=== PATIENT | female | born 1940 | race Caucasian/White ===

== ENCOUNTER → 2020-04-19 12:42 | Outpatient (REF) | payer MEDICARE, SELFPAY ==
--- NOTE | 2020-04-19 12:49 | CA_ITS ---
Transthoracic Echocardiogram Patient (Last, First, Middle): Shonda Venegas, Gender: Female Date of : 1940 Age: 79 Procedure Date: 04/19/2020 Procedure Type: Transthoracic Echocardiogram Location: OP Height: 154.94 cm Weight: 43.09 kg BSA: 1.38 m2 Heart Rate: bpm BP: 118 / 60 mmHg Coffee Taster: Referring MD: Charles Fairbanks MD Dish Carrier: Ziggy Camarena MD Symptoms: I35.0 AORTIC STENOSIS Study Quality: Fair ECG Rhythm: Sinus Conclusions: - 1. Normal LV systolic function with impaired relaxation filling pattern 2. Mild aortic stenosis 3. Normal RV systolic pressure 4. No pericardial effusion Findings Left Ventricle Normal left ventricular size, thickness, and systolic function. The visually estimated ejection fraction is between 65-70%. Spectral Doppler is indicative of an impaired relaxation filling pattern. E/E prime ratio is between 8 and 15 consistent with indeterminate filling pressures. Wall Motion Rest Echo Findings The basal inferolateral segment is hypokinetic. All other scored wall segments showed normal motion. Right Ventricle Normal right ventricular cavity size and systolic function. Atria The left atrium is mildly dilated. There is lipomatous hypertrophy of the interatrial septum. There is no evidence of interatrial shunt. The right atrium is normal in size. Aortic Valve The aortic valve was not well visualized. There is mild aortic valve stenosis. The peak aortic gradient is 19 mmHg.The mean gradient is 12 mmHg. There is no aortic valve regurgitation. Mitral Valve There is mild anterior mitral leaflet thickening. There is mild mitral annular calcification. There is trace mitral valve regurgitation. There is no mitral valve stenosis. Pulmonic Valve The pulmonic valve was not well visualized. Tricuspid Valve Likely normal tricuspid valve structure and function. There is trace tricuspid valve regurgitation. The right ventricular systolic pressure is normal. The right ventricular systolic pressure is 30 mmHg. Normal right atrial pressure. There is no evidence of pulmonary hypertension. Great Vessels All visible segments of the aorta are normal in size. The pulmonary artery was not well visualized. Venous The inferior vena cava is normal in size and collapses greater than 50% with inspiration. Pericardium/Pleural There is no evidence of pericardial effusion. Prior Study Comparison No significant change compared to prior study dated: 03/20/2019. Measurements 2D Linear Measurements IVSd: 1.08 0.6-0.9/0.6-1.0 cm LVIDd: 2.86 3.9-5.3/4.2-5.9 cm LVIDd Index: 2.07 2.4-3.2/2.2-3.1 cm/m2 LVIDs: 1.90 2.0-3.6 cm LVPWd: 1.10 0.7-1.1 cm Ao Root: 2.40 2.1-3.5 cm LA Diam: 3.50 2.7-3.8/3.0-4.0 cm LAIDs Index: 2.54 1.5-2.3 cm/m2 LV Mass: 148.70 67-162/88-224 g LV Mass Index: 107.75 43-95/49-115 g/m2 LVOT Diam: 1.90 3.0+(-)1.3 cm Mitral Valve MV Pk E: 0.66 MV PK A: 1.04 MV Decel Time: 222.00 E/A: 0.60 E'Lateral: 4.93 E'Medial: 5.13 E/E' Med: 12.80 E/E' Lat: 13.30 PHT: 65.00 MVA PHT: 3.38 Decel [place]: 2.95 Aortic Valve AoV Pk Fadi: 2.19 AoV Mn Fadi: 1.57 AoV VTI: 0.42 AoV Pk Grad: 19.00 Aov Mn Grad: 12.00 JEN Cont.VTI: 2.27 LVOT LVOT Pk Fadi: 1.64 LVOT Mn Fadi: 1.23 LVOT VTI: 0.34 LVOT Pk Grad: 11.00 LVOT Mn Grad: 7.00 LVOT Diam: 1.90 LVOT Area: 2.84 Diastolic Function MV Pk E: 0.66 MV Pk A: 1.04 E/A: 0.60 E'Medial: 5.13 E/E' Med: 12.80 E' Laterial: 4.93 E/E' Lat: 13.30 Tricuspid Valve TR Pk Fadi: 2.62 TR Pk Grad: 27.00 RA Press: 3.00 RVSP: 30.00 Great Vessels Aorta Ao Root-2D: 2.40 2.0-3.7 cm Ao Asc: 2.30 2.1-3.4 cm Pulmonary Valve PV Pk Fadi: 1.34 Peak PV Grad: 7.00 Updated in Other Vendor System with Status of Final Ziggy Camarena MD electronically signed on 04/20/2020 11:47:35 AM with status of Final
== END ==
LOC: HO.CARD 12:42
PROVIDERS: Visit Provider Internal Medicine
DX: I35.0 Nonrheumatic aortic (valve) stenosis (principal); I44.7 Left bundle-branch block, unspecified
CPT/HCPCS: 93306

== ENCOUNTER → 2020-04-29 14:41 | Outpatient (BNVA) | payer MEDICARE, SELFPAY | PROVIDERS: PCP Internal Medicine; Visit Provider Internal Medicine | DX: I35.0 Nonrheumatic aortic (valve) stenosis (principal); I44.7 Left bundle-branch block, unspecified; I10 Essential (primary) hypertension; E78.5 Hyperlipidemia, unspecified | CPT/HCPCS: 99212 ==

== ENCOUNTER 2020-11-30 22:27 | Emergency (ER) | payer MEDICARE, SELFPAY ==
[2020-11-30 22:46] VITALS: BP 157/74; PULSE 89; RESP 16; TEMP 36.4; O2SAT 94; BMI 25.4
--- NOTE | 2020-12-01 00:43 | ED.EXTPRO ---
HPI - Extremity Problem General Chief complaint: Extremity Problem Stated complaint: Leg spasms Time Seen by Provider: 12/01/20 00:43 Source: patient Mode of arrival: ambulatory Limitations: no limitations History of Present Illness HPI Narrative: Patient woke up of the night going to the bathroom and came back noticed sudden sharp pain in the left gluteal area radiating to the left leg. No back pain no abdominal pain no nausea no vomiting patient never had similar pain in the past no leg weakness no numbness Related Data Home Medications Medication Instructions Recorded Confirmed atorvastatin 40 mg tablet mg PO 04/29/20 04/29/20 memantine 10 mg tablet 10 mg PO BID 04/29/20 04/29/20 Previous Rx's Medication Instructions Recorded amlodipine 10 mg tablet 10 mg PO DAILY 90 Days #90 tab 02/21/20 lisinopril 20 2 tab PO DAILY #180 tab 10/15/20 mg-hydrochlorothiazide 12.5 mg tablet cyclobenzaprine 5 mg PO BID PRN #14 tab 12/01/20 diclofenac sodium 50 mg PO Q12H PRN #20 tab 12/01/20 Allergies Allergy/AdvReac Type Severity Reaction Status Date / Time No Known Allergies Allergy Verified 11/30/20 22:52 Review of Systems Review of Systems: Yes all other systems are reviewed and are negative [facility] Past Medical History Medical History Dementia Essential hypertension Hypertension LBBB (left bundle branch block) Non-rheumatic aortic stenosis Other and unspecified hyperlipidemia Surgical History History of bunionectomy History of rotator cuff surgery History of shoulder surgery History of tubal ligation Family History Family History Father No problems noted. Mother No problems noted. Social History Social History Advance Directives: No Advance Directives Information Provided: No Physical Exam Vital Signs: Vital Signs: Last Vital Signs Temp 97.5 F 11/30/20 22:46 Pulse 89 11/30/20 22:46 Resp 16 11/30/20 22:46 BP 157/74 H 11/30/20 22:46 Pulse Ox 94 11/30/20 22:46 Body Mass Index 25.4 Appearance: Alert. Oriented X3. No acute distress. ENT: Pharynx normal. Oral Mucosa moist Neck: Normal inspection. Neck supple. CVS: Normal heart rate and rhythm. Pulses normal. Respiratory: No respiratory distress. Equal air entry bilateral, Abdomen: Soft and nontender. Bowel sounds are present, no mass palpable, no CVA tenderness Skin: Skin warm and dry. Normal skin color. Normal skin turgor. Back: Left sciatic notch tenderness+ SLR positive at 80 degrees left side. No focal spinal tenderness patient ambulatory gait is normal Extremities: No lower extremity edema. No calf tenderness Neuro: Oriented X 3. No motor deficit. No sensory deficit MDM - Extremity (Nontraumatic) MDM Narrative Medical decision making narrative: Patient's symptoms likely from pyriform muscle spasm causing the sciatic pain. Will discharge patient on muscle relaxant and pain medication advised to follow with PCP Discharge Plan Discharge Clinical Impression: Piriformis syndrome of left side Patient Disposition: Home, Self-Care Instructions: Piriformis Syndrome (ED) Additional Instructions: Take pain Medications , take muscle relaxant as advised exercise as advised Prescriptions: New cyclobenzaprine 5 mg tablet 5 mg PO BID PRN (Reason: muscle spasm) Qty: 14 RF: 0 diclofenac sodium 50 mg tablet,delayed release (DR/EC) 50 mg PO Q12H PRN (Reason: pain) Qty: 20 RF: 0 No Action amlodipine 10 mg tablet 10 mg PO DAILY 90 Days Qty: 90 RF: 1 lisinopril-hydrochlorothiazide 20-12.5 mg tablet 2 tab PO DAILY Qty: 180 RF: 1 atorvastatin 40 mg tablet PO RF: 0 memantine 10 mg tablet 10 mg PO BID RF: 0
--- NOTE | 2020-12-01 01:00 | PC.NURSE ---
PER MD LABS NOT NEEDED, D/C W/O LAB WORK.
[2020-12-01] MEDS: Cyclobenzaprine HCl 10 MG TABLET PO (01:05)
[2020-12-01] MEDS: traMADoL HCL 50 MG TABLET PO (01:05)
== END 2020-12-01 01:13 | disposition home or self-care (01) ==
LOC: HO.ED 12-01 00:57
PROVIDERS: Emergency Provider Internal Medicine
DX: G57.02 Lesion of sciatic nerve, left lower limb (principal); M79.605 Pain in left leg; I10 Essential (primary) hypertension; Z79.899 Other long term (current) drug therapy
CPT/HCPCS: 99283

== ENCOUNTER → 2021-06-12 07:40 | Outpatient (REF) | payer MEDICARE, MEDICAID, SELFPAY ==
--- NOTE | 2021-06-12 07:51 | CA_ITS ---
Transthoracic Echocardiogram Patient (Last, First, Middle): Shonda Venegas, Gender: Female Date of : 1940 Age: 80 Procedure Date: 06/12/2021 Procedure Type: Transthoracic Echocardiogram Location: OP Height: 149.86 cm Weight: 57.15 kg BSA: 1.52 m2 Heart Rate: bpm BP: 120 / 80 mmHg Door Repairman: DELVIN Zavala MD: Charles Fairbanks MD Offset Press Operator Apprentice: Ziggy Camarena MD Symptoms: I35.0 - Nonrheumatic aortic (valve) stenosis Study Quality: Fair ECG Rhythm: Sinus Conclusions: - 1. Normal LV systolic function with impaired relaxation filling pattern with elevated filling pressures 2. Mild aortic stenosis 3. Upper limits of normal RV systolic pressure 4. No pericardial effusion Findings Left Ventricle Normal left ventricular size, thickness, and systolic function. The visually estimated ejection fraction is between 60-65%. Spectral Doppler is indicative of an impaired relaxation filling pattern. Elevated filling pressures. E/E prime ratio is >15, consistent with elevated filling pressures. Right Ventricle Normal right ventricular cavity size and systolic function. Atria The left atrium is normal in size. Interatrial shunt cannot be excluded. The right atrium is normal in size. Aortic Valve There is mild calcification of the aortic valve. There is mild aortic valve stenosis. The peak aortic gradient is 33 mmHg.The mean gradient is 17 mmHg. The aortic valve area is 1.82 cm2. There is no aortic valve regurgitation. Mitral Valve There is mild anterior and posterior mitral leaflet thickening. There is trace mitral valve regurgitation. There is no mitral valve stenosis. Pulmonic Valve The pulmonic valve was not well visualized. Tricuspid Valve Likely normal tricuspid valve structure and function. There is mild tricuspid valve regurgitation. The right ventricular systolic pressure is normal. The right ventricular systolic pressure is 37 mmHg. Normal right atrial pressure. There is no evidence of pulmonary hypertension. Great Vessels All visible segments of the aorta are normal in size. The pulmonary artery was not well visualized. Venous The inferior vena cava is normal in size and collapses greater than 50% with inspiration. Pericardium/Pleural There is no evidence of pericardial effusion. Prior Study Comparison No significant change compared to prior study dated: 04/19/2020. Measurements 2D Linear Measurements IVSd: 1.01 0.6-0.9/0.6-1.0 cm LVIDd: 3.06 3.9-5.3/4.2-5.9 cm LVIDd Index: 2.01 2.4-3.2/2.2-3.1 cm/m2 LVIDs: 2.21 2.0-3.6 cm LVPWd: 1.02 0.7-1.1 cm Ao Root: 2.30 2.1-3.5 cm LA Diam: 2.90 2.7-3.8/3.0-4.0 cm LAIDs Index: 1.91 1.5-2.3 cm/m2 LV Mass: 107.35 67-162/88-224 g LV Mass Index: 70.62 43-95/49-115 g/m2 LVOT Diam: 1.90 3.0+(-)1.3 cm 2D Systolic Function EF 4C: 61.80 >55% EF 2C: 61.60 >55% EF BiP: 62.40 >55% Mitral Valve MV Pk E: 0.86 MV PK A: 1.22 MV Decel Time: 243.00 E/A: 0.70 E'Lateral: 5.00 E'Medial: 5.77 E/E' Med: 15.00 E/E' Lat: 17.30 PHT: 71.00 MVA PHT: 3.10 Decel [place]: 3.55 Aortic Valve AoV Pk Fadi: 2.86 AoV Mn Fadi: 1.93 AoV VTI: 0.48 AoV Pk Grad: 33.00 Aov Mn Grad: 17.00 JEN Cont.VTI: 1.82 LVOT LVOT Pk Fadi: 1.58 LVOT Mn Fadi: 1.16 LVOT VTI: 0.31 LVOT Pk Grad: 10.00 LVOT Mn Grad: 6.00 LVOT Diam: 1.90 LVOT Area: 2.84 Diastolic Function MV Pk E: 0.86 MV Pk A: 1.22 E/A: 0.70 E'Medial: 5.77 E/E' Med: 15.00 E' Laterial: 5.00 E/E' Lat: 17.30 Right Ventricle TAPSE (mm): 2.33 TVS' Fadi: 14.40 Tricuspid Valve TR Pk Fadi: 2.92 TR Pk Grad: 34.00 RA Press: 3.00 RVSP: 37.00 Great Vessels Aorta Ao Root-2D: 2.30 2.0-3.7 cm Ao Asc: 2.30 2.1-3.4 cm Ao Arch: 2.70 Updated in Other Vendor System with Status of Final Ziggy Camarena MD electronically signed on 06/13/2021 4:21:34 PM with status of Final
== END ==
LOC: HO.CARD 07:40
PROVIDERS: Visit Provider Internal Medicine
DX: I35.0 Nonrheumatic aortic (valve) stenosis (principal)
CPT/HCPCS: 93306

== ENCOUNTER → 2021-06-16 12:29 | Outpatient (BNVA) | payer MEDICARE, MEDICAID, SELFPAY | PROVIDERS: Visit Provider Internal Medicine | DX: I35.0 Nonrheumatic aortic (valve) stenosis (principal); I44.7 Left bundle-branch block, unspecified; I45.4 Nonspecific intraventricular block; I10 Essential (primary) hypertension | CPT/HCPCS: 93005; 99212 ==

== ENCOUNTER → 2022-06-17 12:18 | Outpatient (BNVA) | payer MEDICARE, MEDICAID, SELFPAY | PROVIDERS: Visit Provider Internal Medicine | DX: I35.0 Nonrheumatic aortic (valve) stenosis (principal); I44.7 Left bundle-branch block, unspecified; F03.90 Unspecified dementia, unspecified severity, without behavioral disturbance, psychotic disturbance, mood disturbance, and anxiety; I10 Essential (primary) hypertension | CPT/HCPCS: 93005; 99212 ==

== ENCOUNTER 2023-06-03 16:31 | Emergency (ER) | payer MEDICARE, SELFPAY ==
--- NOTE | ~2023-06-03 | CT_ITS ---
EXAMINATION: CT ABDOMEN AND PELVIS WITHOUT CONTRAST CLINICAL INFORMATION: Lower abdominal pain COMPARISON: None available. TECHNIQUE: Multidetector volumetric imaging was performed from the superior aspect of the liver through the pubic symphysis. Sagittal and coronal reformatted images were obtained on the technologist's workstation. This CT examination was performed using dose optimization techniques as appropriate, variously including the following: *Automated exposure control *Adjustment of mA and/or kV according to patient size (this includes techniques or standardized protocols for targeted exams where dose is matched to indication/reason for exam; i.e. extremities or head) *Use of iterative reconstruction technique DLP: 434 mGy-cm FINDINGS: LUNG BASES: The visualized lung bases are unremarkable. LIVER, GALLBLADDER, AND BILIARY TREE: The liver is normal in size, shape, and attenuation. No focal hepatic lesion or biliary ductal dilatation is present. The gallbladder is unremarkable with no evidence of radiopaque gallstones, gallbladder wall thickening, or obvious pericholecystic inflammatory changes. PANCREAS: Unremarkable. SPLEEN: Unremarkable. ADRENAL GLANDS: Unremarkable. KIDNEYS AND URETERS: The kidneys are normal in size, shape, and attenuation. No hydronephrosis, hydroureter, or calculi seen. No perinephric stranding. BLADDER: Unremarkable. GASTROINTESTINAL TRACT: The small and large bowel are unremarkable. The appendix is is not seen but there is no evidence of appendicitis.. ABDOMINAL WALL: No significant hernia is appreciated. LYMPH NODES: No retroperitoneal lymphadenopathy. VASCULAR: Calcific atherosclerotic changes are present in the aorta and iliofemoral vessels. There is no evidence of an abdominal aortic aneurysm. PELVIC VISCERA: The uterus and adnexa are unremarkable. OSSEOUS STRUCTURES: Right convex thoracolumbar scoliosis is present. Degenerative changes are seen throughout the spine. No bony destructive lesions CT/CT abdomen pelvis wo IV con IMPRESSION: A cause for the patient's lower abdominal pain has not been found. Incidental findings as described above. Fleischner guidelines were followed.
--- NOTE | ~2023-06-03 | XR_ITS ---
EXAMINATION: XR CHEST CLINICAL INFORMATION: Leukocytosis COMPARISON: None TECHNIQUE: Frontal portable view of the chest was obtained. 2155 hours FINDINGS: Lungs are clear. No pulmonary vascular congestion. There is no pleural effusion. The heart size is normal. The cardiac and mediastinal contours are normal. There are calcifications of the thoracic aorta. There are multilevel degenerative changes of dorsal spine. History of scoliosis of spine. XR/XR chest 1V IMPRESSION: Unremarkable examination.
[2023-06-03 16:46] VITALS: BP 104/76; BP 146/57; PULSE 62; PULSE 72; RESP 17; TEMP 36.5; O2SAT 97; O2SAT 98; BMI 20.3
--- NOTE | 2023-06-03 17:09 | ED.SYNCOPE ---
HPI - Syncope General Chief Complaint: Syncope Stated Complaint: syncope Time Seen by Provider: 06/03/23 17:09 Source: patient Mode of arrival: ambulatory Limitations: no limitations History of Present Illness HPI narrative: Patient's history of significant dementia was not toilet trying to move her bowels felt abdominal discomfort got up and went daughter open the door was diaphoretic pale almost passed out went back to the toilet and had a semi soft bowel movement. Denied any chest pain or shortness of breath after arrival patient was feeling fine no nausea no vomiting Related Data Home Medications Medication Instructions Recorded Confirmed memantine 10 mg tablet 10 mg PO BID 04/29/20 06/17/22 diclofenac sodium 1 % topical gel 2 g topical QID 06/17/22 06/17/22 omega-3 fatty acids 1,000 mg 1,000 mg PO DAILY 06/17/22 06/17/22 capsule trazodone 50 mg tablet 50 mg PO BEDTIME PRN 06/17/22 06/17/22 Previous Rx's Medication Instructions Recorded amlodipine 10 mg tablet 10 mg PO DAILY 90 days #90 tabs 02/21/20 lisinopril 20 2 tab PO DAILY #180 tabs 10/15/20 mg-hydrochlorothiazide 12.5 mg tablet Allergies Allergy/AdvReac Type Severity Reaction Status Date / Time No Known Allergies Allergy Verified 06/03/23 16:45 Review of Systems Review of Systems: Yes Unobtainable due to mental status (Forgetful) [facility] Past Medical History Onset Date is defined in the Problem List Problems that require an onset date and time if occurred within 24 hrs of arrival to the ED Aortic Dissection and Rupture; Neurologic impairment; Cardiopulmonary Arrest; Endotracheal Intubation; Insertion or Replacement of Mechanical Circulatory Assist Device Medical History Dementia Other and unspecified hyperlipidemia Essential hypertension LBBB (left bundle branch block) Non-rheumatic aortic stenosis Hypertension Surgical History History of shoulder surgery History of bunionectomy History of rotator cuff surgery History of tubal ligation Family History Family History Father No problems noted. Mother No problems noted. Social History Social History Patient Tobacco Use Status: Never used Tobacco Smoked in Last 30 Days: No Use of substances other than those prescribed or required for medical reasons: No Advance Directives: No Advance Directives Information Provided: No Physical Exam Vital Signs: Vital Signs: Last Vital Signs Temp 98.9 F 06/03/23 23:46 Pulse 89 06/03/23 23:46 Resp 16 06/03/23 23:46 BP 140/86 H 06/03/23 23:46 Pulse Ox 96 06/03/23 23:46 O2 Del Method Room Air 06/03/23 23:46 BMI result Body Mass Index 20.3 Appearance: Alert. Oriented X2. No acute distress. Eyes: PERRLA, No Nystagmus ENT: Pharynx normal. Oral Mucosa moist Neck: Normal inspection. Neck supple. CVS: Normal heart rate and rhythm. Pulses normal. Respiratory: No respiratory distress. Equal air entry bilateral, no wheezing/rales/rhonchi Abdomen: Soft, diffuse discomfort no rebound tenderness or guarding. Bowel sounds are present, no mass palpable, no CVA tenderness Skin: Skin warm and dry. Normal skin color. Normal skin turgor. Extremities: No lower extremity edema. No calf tenderness Neuro: Oriented X 2. No motor deficit. No sensory deficit.No cerebellar signs , cranial nerves II-XII intact Medications Administered Discontinued Medications Generic Name Dose Route Start Last Admin Trade Name Freq PRN Reason Stop Dose Admin Sodium Chloride 1,000 mls @ 999 mls/hr 06/03/23 18:00 06/03/23 19:40 Ns IV 06/03/23 19:00 Infused .Q1H1M ONE Infusion Medical Decision Making Medical Decision Making [facility] Narrative: Patient's symptoms likely with vasovagal syncope secondary to abdominal discomfort while moving her bowels workup is negative for ACS no cardiac arrhythmias noticed abdominal CT is negative for acute patient ambulatory feels stable taking p.o. fluids will discharge patient home with family patient does have leukocytosis of unknown etiology lactic acid normal , blood cultures were drawn patient is afebrile no other source of infection at this time Differential Diagnosis Differential Diagnoses: The differential diagnosis associated with the presentation includes Syncope/vasovagal/ACS/cardiac arrhythmic Admission/Observation Consideration of admission/observation: Escalation of care including admission/observation considered Lab Data [facility] Lab Attestation statement: I reviewed the patient's lab results. 06/03/23 18:52 06/03/23 18:52 Labs: Lab Results 06/03/23 06/03/23 06/03/23 Range/Units 18:52 20:03 22:10 WBC 18.9 H (4.8-10.8) X10*3/uL RBC 3.90 L (4.20-5.50) X10*6/uL Hgb 11.4 L (12.0-16.0) g/dl Hct 33.2 L (37.0-47.0) % MCV 85.1 (80.0-98.0) fL MCH 29.2 (27.0-33.0) pg MCHC 34.3 (31.0-35.0) g/dl RDW 13.5 (11.0-16.0) % Plt Count 314 (160-400) X10*3/uL MPV 11.1 (9.4-12.3) fL Immature Gran % (Auto) 0.5 H (0.0-0.4) % Neut % (Auto) 91.1 H (45-73) % Lymph % (Auto) 3.7 L (20-40) % [place] % (Auto) 4.3 (2-11) % Eos % (Auto) 0.1 (0-4) % Baso % (Auto) 0.3 (0-2) % Lymph # (Auto) 0.7 L (1.2-4.9) X10*3/uL [place] # (Auto) 0.8 (0.1-1.2) X10*3/uL Eos # (Auto) 0.0 (0.0-0.4) X10*3/uL Baso # (Auto) 0.1 (0.0-0.2) X10*3/uL Abs Immat Gran (auto) 0.09 H (0.00-0.03) X10*3/uL Absolute Neuts (auto) 17.2 H (2.0-8.3) x10*3/uL Absolute Nucleated RBC 0.000 (0.0-0.012) X10*3/uL Nucleated RBC % (auto) 0.0 (0.0-0.2) /100WBC Smear Tech's Comments VERIFIED Sodium 142 (135-145) mmol/L Potassium 3.3 (3.3-5.1) mmol/L Chloride 104 (96-108) mmol/L Carbon Dioxide 28 (22-29) mmol/L Anion Gap 13 (12-20) BUN 20 H (9-16) mg/dL Creatinine 0.88 (0.5-1.4) mg/dL Estim Creat Clear Calc 36.6 Estimated GFR > 60 Random Glucose 135 H (60-115) mg/dL Lactic Acid 1.1 2.0 (0.5-2.0) mmol/L Calcium 9.8 (8.4-10.2) mg/dL Total Bilirubin 0.4 (0.0-1.0) mg/dL AST 17 (5-31) U/L ALT 11 (0-31) U/L Alkaline Phosphatase 77 (39-117) U/L Troponin I High Sens 9.6 12.5 (<3.5-17.0) ng/L Total Protein 6.7 (6.5-8.0) g/dL Albumin 4.2 (3.5-5.0) g/dL Lipase 14 (8-78) U/L Urine Color Yellow Urine Appearance Clear Urine pH 6.5 (5.0-9.0) Ur Specific [place] 1.020 (1.005-1.025) Urine Protein Negative (Neg-Trace) mg/dL Urine Glucose (UA) Negative (Negative) mg/dL Urine Ketones Negative (Negative) mg/dL Urine Blood Negative (Negative) Urine Nitrite Negative (Negative) Ur Leukocyte Esterase Trace H (Negative) Urine RBC 0-2 (0-2) /HPF Urine WBC 0-5 (0-5) /HPF Ur Squamous Epith Cells 0-2 (0-2) /HPF Urine Bacteria None Seen (None Seen) Hyaline Casts 0-2 (0-2) /LPF Discharge Plan Discharge Clinical Impression: Vasovagal syncope Patient Disposition: Home, Self-Care Instructions: Syncope in Older Adults (ED) Additional Instructions: Drink plenty of fluid Follow with PCP if recurrence of similar episode Report to the ER if high fever Prescriptions: No Action amlodipine 10 mg tablet 10 mg PO DAILY 90 Days Qty: 90 1RF lisinopril-hydrochlorothiazide 20-12.5 mg tablet 2 tab PO DAILY Qty: 180 1RF memantine 10 mg tablet 10 mg PO BID omega-3 fatty acids 1,000 mg capsule 1,000 mg PO DAILY trazodone 50 mg tablet 50 mg PO BEDTIME PRN diclofenac sodium 1 % gel 2 g topical QID Rx Instructions: apply to single elbow, wrist or hand; for hand includes palm/fingers/back of hand Interventions: ED Discharge Assessment Last Done: 06/03/23 23:49 Discharge Date/Time: 06/03/23 23:50
--- NOTE | 2023-06-03 18:00 | ECG_ITS ---
Test Reason : NEAR SYNCOPE Blood Pressure : / mmHG Vent. Rate : 072 BPM Atrial Rate : 072 BPM P-R Int : 134 ms QRS Dur : 118 ms QT Int : 422 ms P-R-T Axes : 061 -15 128 degrees QTc Int : 462 ms Normal sinus rhythm Left bundle branch block Abnormal ECG When compared with ECG of 21-AUG-2005 13:34, No significant changes seen Referred By: Otto Kelly Electronically Signed By:OLMAN KUMARI
[2023-06-03 18:35] VITALS: BP 154/71; PULSE 80; RESP 18; O2SAT 98
[2023-06-03] MEDS: 0.9 % Sodium Chloride 1,000 ML 999 ML IV (18:35)
[2023-06-03 18:37] VITALS: O2SAT 96
[2023-06-03 19:07] LABS: Basophils Absolute Auto 0.1 X10*3/uL (0.0-0.2); Basophils Percent Auto 0.3 % (0-2); Eosinophils Percent Auto 0.1 % (0-4); Hematocrit 33.2 % (37.0-47.0); Hemoglobin 11.4 g/dl (12.0-16.0); Imm Gran Abs Auto 0.09 X10*3/uL (0.00-0.03); Imm Gran Pct Auto 0.5 % (0.0-0.4); Lymphocytes Absolute Auto 0.7 X10*3/uL (1.2-4.9); Lymphocytes Percent Auto 3.7 % (20-40); MANUAL DIFF FLAG SCAN; Mean Corpuscular HGB Conc 34.3 g/dl (31.0-35.0); Mean Corpuscular Hemoglobin 29.2 pg (27.0-33.0); Mean Corpuscular Volume 85.1 fL (80.0-98.0); Mean Platelet Volume 11.1 fL (9.4-12.3); Monocytes Absolute Auto 0.8 X10*3/uL (0.1-1.2); Monocytes Percent Auto 4.3 % (2-11); Neutrophils Absolute Auto 17.2 x10*3/uL (2.0-8.3); Neutrophils Percent Auto 91.1 % (45-73); Platelet Count 314 X10*3/uL (160-400); Red Cell Distribution Width 13.5 % (11.0-16.0); SCAN SMEAR FLAG 1; White Blood Count 18.9 X10*3/uL (4.8-10.8)
[2023-06-03 19:13] LABS: Lactic Acid 1.1 mmol/L (0.5-2.0)
[2023-06-03 19:16] LABS: Alanine Aminotransferase 11 U/L (0-31); Albumin Level 4.2 g/dL (3.5-5.0); Alkaline Phosphatase 77 U/L (39-117); Anion Gap 13 (12-20); Aspartate Amino Transferase 17 U/L (5-31); Bilirubin Total 0.4 mg/dL (0.0-1.0); Blood Urea Nitrogen 20 mg/dL (9-16); Calcium 9.8 mg/dL (8.4-10.2); Carbon Dioxide 28 mmol/L (22-29); Chloride 104 mmol/L (96-108); Creatinine Clr Calc Pharmacy 36.6; Estimated Glomerular Filt Rate > 60; Glucose Random 135 mg/dL (60-115); Lipase 14 U/L (8-78); Potassium 3.3 mmol/L (3.3-5.1); Sodium 142 mmol/L (135-145); Total Protein 6.7 g/dL (6.5-8.0)
[2023-06-03 19:24] LABS: Troponin-I High Sensitivity 9.6 ng/L (<3.5-17.0)
[2023-06-03 19:40] LABS: SLIDE REVIEW VERIFIED
[2023-06-03 20:00] VITALS: BP 145/68; PULSE 87; RESP 14; O2SAT 96
[2023-06-03 20:14] LABS: Appearance Urine Clear; Color Urine Yellow; Glucose Urine UA Negative (Negative); Leukocyte Esterase Urine Trace (Negative); Nitrite Urine Negative (Negative); PH 6.5 (5.0-9.0); UMIC TRIGGER UACC YES; Urine Blood Negative (Negative); Urine Ketones Negative (Negative); Urine Protein Negative (Neg-Trace)
[2023-06-03 20:19] LABS: Bacteria Urine None Seen (None Seen); Hyaline Casts Urine 0-2 /LPF (0-2); RBC Urine 0-2 /HPF (0-2); Squamous Epithelial Cell Urine 0-2 /HPF (0-2); WBC Urine 0-5 /HPF (0-5)
[2023-06-03 21:58] VITALS: BP 145/73; PULSE 83; RESP 14; TEMP 36.9; O2SAT 97
[2023-06-03 22:42] LABS: Troponin-I High Sensitivity 12.5 ng/L (<3.5-17.0)
[2023-06-03 23:46] VITALS: BP 140/86; PULSE 89; RESP 16; TEMP 37.2; O2SAT 96
== END 2023-06-03 23:50 | disposition home or self-care (01) ==
PROVIDERS: Emergency Provider Internal Medicine; PCP Internal Medicine
DX: R55 Syncope and collapse (principal); I44.7 Left bundle-branch block, unspecified; R10.30 Lower abdominal pain, unspecified; R06.02 Shortness of breath; Z79.899 Other long term (current) drug therapy
CPT/HCPCS: 36415; 71045; 74176; 80053; 81001; 83605; 83690; 84484; 85025; 87040; 93005; 96360; 99284; 99285

== ENCOUNTER → 2023-06-03 18:00 | Outpatient (BNV) | payer MEDICARE, SELFPAY | PROVIDERS: Emergency Provider Internal Medicine; PCP Internal Medicine; Visit Provider Internal Medicine | DX: R94.31 Abnormal electrocardiogram [ECG] [EKG] (principal); I44.7 Left bundle-branch block, unspecified | CPT/HCPCS: 93010 ==

== ENCOUNTER 2023-06-17 12:20 | Outpatient (AMB) | payer MEDICARE, MEDICAID, SELFPAY ==
--- NOTE | 2023-06-17 12:32 | A.OFFVIS_ITS ---
Intake Vital Signs 06/17/23 12:34 Height 4 ft 11 in Weight 97 lb 0.054 oz BMI 19.6 BP 120/56 L Blood Pressure Location Lt brachial Position Sitting Pulse 60 Intake Visit Reasons: 1 yr follow-up Intake Note: 1 year follow up Director Of Athletics Required: No Accompanied by: Daughter Allergies No Known Allergies Allergy (Verified 06/17/23 12:35) Medication List - Last Reconciled 06/17/23 by Charles Fairbanks MD amlodipine 10 mg PO DAILY 90 days atorvastatin 10 mg PO DAILY diclofenac sodium 1% 2 grams topical QID lisinopril-hydrochlorothiazide 20-12.5 mg 2 tabs PO DAILY memantine 10 mg PO BID omega-3 fatty acids 1,000 mg PO DAILY trazodone 50 mg PO BEDTIME PRN HPI HPI Comments History of Present Illness Details Shonda returns for follow-up. She has a history of aortic stenosis as well as left bundle-branch block. Has Alzheimer's dementia. Recently visit to the emergency room for syncopal episode thought to be vasovagal. Otherwise, generally has been stable from cardiac. [facility] Medical History Dementia Other and unspecified hyperlipidemia Essential hypertension LBBB (left bundle branch block) Non-rheumatic aortic stenosis Hypertension Surgical History History of shoulder surgery History of bunionectomy History of rotator cuff surgery History of tubal ligation Family History Father No problems noted. Mother No problems noted. Social History Patient Tobacco Use Status: Never used Tobacco Review of Systems Const Denies weakness ENT Denies dizziness Card Denies chest pain, Denies chest pain with activity, Denies syncope, Denies rapid heart rate, Denies pedal edema, Denies edema, Denies leg edema, Denies lightheadedness, Denies palpitations, Denies dyspnea, Denies dyspnea on exertion and Denies orthopnea Resp Denies cough, Denies dyspnea and Denies dyspnea on exertion GI Denies hematochezia and Denies change in stool character Musc Denies abnormal gait, Denies muscle cramps, Denies muscle weakness, Denies numbness, Denies radiating pain into limb and Denies tingling Neuro Denies abnormal gait, Denies dizziness, Denies syncope, Denies numbness, Denies tingling and Denies weakness Endo Denies palpitations Physical Exam Vital Signs: Last Vital Signs Pulse 60 06/17/23 12:34 BP 120/56 L 06/17/23 12:34 BMI result Body Mass Index 19.6 Const General: cooperative, comfortable and no acute distress Orientation/consciousness: patient oriented x3 HEENT Other: Unremarkable Neck Neck: Yes normal visual inspection Chest Chest palpation & inspection: normal inspection of the chest Resp Auscultation: clear to auscultation bilaterally, no crackles and no wheezes Cardio Jugular venous distension: no JVD Palpation: normal PMI Heart sounds: S1 normal heart sound present, S2 normal heart sound present, no gallops, Murmur heart sound present systolic early and II/ and no rubs GI Palpation (GI): Soft to palpation Back/Spine/Pelvis Other: unremarkable Skin General skin exam: no rashes or lesions noted Neuro General: patient oriented x3 Extrem General: Yes edema (Trace) Psych Mental Status: mental status grossly normal Assessment & Plan Assessment & Plan (1) Non-rheumatic aortic stenosis: Code(s): I35.0 - Nonrheumatic aortic (valve) stenosis Plan: In the most recent echocardiogram in 2021, mean gradient across aortic valve was 17 mm Hg with a peak of 33 mm Hg. Calculated valve area of 1.8 sq cm. Thought to be mild aortic stenosis. Preserved LVEF. We will recheck her study. (2) LBBB (left bundle branch block): Code(s): I44.7 - Left bundle-branch block, unspecified Plan: Chronic finding. Myocardial perfusion imaging study in the past was also unremarkable. (3) Essential hypertension: Code(s): I10 - Essential (primary) hypertension Plan: Stable on the current regimen of amlodipine, lisinopril/hydrochlorothiazide. (4) Dementia: Code(s): F03.90 - Unspecified dementia, unspecified severity, without behavioral disturbance, psychotic disturbance, mood disturbance, and anxiety Plan: Stable per family. Orders: Orders CA echo transthoracic complete Today I35.0 - Nonrheumatic aortic (valve) stenosis, I44.7 - Left bundle-branch block, unspecified Coding Level of Care Code Est Pt Level 4 (91245) Diagnoses Non-rheumatic aortic stenosis I35.0 LBBB (left bundle branch block) I44.7 Essential hypertension I10 Dementia F03.90
[2023-06-17 12:34] VITALS: BP 120/56; PULSE 60; BMI 19.6
== END 2023-06-17 12:48 | disposition home or self-care (01) ==
PROVIDERS: Visit Provider Internal Medicine
DX: I35.0 Nonrheumatic aortic (valve) stenosis (principal); I44.7 Left bundle-branch block, unspecified; I10 Essential (primary) hypertension; F03.90 Unspecified dementia, unspecified severity, without behavioral disturbance, psychotic disturbance, mood disturbance, and anxiety
CPT/HCPCS: 99214

== ENCOUNTER → 2023-06-17 12:20 | Outpatient (BNVA) | payer MEDICARE, MEDICAID, SELFPAY | PROVIDERS: Visit Provider Internal Medicine | DX: I35.0 Nonrheumatic aortic (valve) stenosis (principal); I44.7 Left bundle-branch block, unspecified; I10 Essential (primary) hypertension; F03.90 Unspecified dementia, unspecified severity, without behavioral disturbance, psychotic disturbance, mood disturbance, and anxiety; Z79.899 Other long term (current) drug therapy | CPT/HCPCS: 99212 ==

== ENCOUNTER → 2023-07-09 14:55 | Outpatient (REF) | payer MEDICARE, MEDICAID, SELFPAY ==
--- NOTE | 2023-07-09 14:58 | CA_ITS ---
Transthoracic Echocardiogram Patient (Last, First, Middle): Shonda Venegas, Gender: Female Date of : 1940 Age: 82 Procedure Date: 07/09/2023 Procedure Type: Transthoracic Echocardiogram Location: OP Height: 149.86 cm Weight: 44.45 kg BSA: 1.36 m2 Heart Rate: bpm BP: 148 / 64 mmHg [facility] Former: [place] Referring MD: Charles Fairbanks MD Ware Dresser: Ziggy Camarena MD Symptoms: I35.0 - Nonrheumatic aortic (valve) stenosis Study Quality: Fair ECG Rhythm: Sinus Conclusions: - 1. Normal LV systolic function with LVEF of 65-70% with impaired relaxation filling pattern and elevated filling pressures 2. Vqan-nc-ugejpxvk aortic stenosis 3. Normal RV systolic pressure 4. No gross pericardial effusion Findings Procedure Information The study quality is limited by the patients inability to tolerate the test. Left Ventricle Normal left ventricular size, thickness, and systolic function. The visually estimated ejection fraction is between 65-70%. Spectral Doppler is indicative of an impaired relaxation filling pattern. Elevated filling pressures. E/E prime ratio is >15, consistent with elevated filling pressures. There is mild septal asymmetric hypertrophy. Peak GLS is -20.2%, within normal limits. Right Ventricle Normal right ventricular cavity size and systolic function. Atria The left atrium is likely dilated. Interatrial shunt cannot be excluded. The right atrium is normal in size. Aortic Valve The aortic valve was not well visualized. There is mild calcification of the aortic valve. There is mild to moderate aortic valve stenosis. The peak aortic velocity is 2.58 m/s with a calculated peak gradient of 27 mmHg. The mean gradient is 16 mmHg. The aortic valve area is 1.24 cm2. Mitral Valve There is mild anterior and posterior mitral leaflet thickening. There is mild mitral annular calcification. There is trace mitral valve regurgitation. There is no mitral valve stenosis. Pulmonic Valve The pulmonic valve is likely normal. Tricuspid Valve Normal tricuspid valve structure. There is mild tricuspid valve regurgitation. The right ventricular systolic pressure is normal. The right ventricular systolic pressure is 27 mmHg. Normal right atrial pressure. There is no evidence of pulmonary hypertension. Great Vessels All visible segments of the aorta are normal in size. There is no dilatation of the ascending aorta measuring 2.60 cm. Small plaque is seen in the sino tubular ridge. Venous The inferior vena cava is normal in size and collapses greater than 50% with inspiration. Pericardium/Pleural There is no evidence of pericardial effusion. Prior Study Comparison Changes noted compared to prior study dated: 06/12/2021. Bjzs-jw-lwxmgwez aortic stenosis is present Measurements 2D Linear Measurements IVSd: 1.29 0.6-0.9/0.6-1.0 cm LVIDd: 3.72 3.9-5.3/4.2-5.9 cm LVIDd Index: 2.74 2.4-3.2/2.2-3.1 cm/m2 LVIDs: 2.76 2.0-3.6 cm LVPWd: 0.75 0.7-1.1 cm LA Diam: 3.10 2.7-3.8/3.0-4.0 cm LAIDs Index: 2.28 1.5-2.3 cm/m2 LV Mass: 145.11 67-162/88-224 g LV Mass Index: 106.70 43-95/49-115 g/m2 LVOT Diam: 1.80 3.0+(-)1.3 cm 2D Systolic Function EF 4C: 70.50 >55% Mitral Valve MV VTI: 0.33 MV Pk Fadi: 1.15 MV Mn Fadi: 0.58 MV Pk Grad: 5.00 MV Mn Grad: 2.00 MV Pk E: 0.68 MV PK A: 1.01 MV Decel Time: 280.00 E/A: 0.70 E'Lateral: 4.24 E'Medial: 3.26 E/E' Med: 20.90 E/E' Lat: 16.10 PHT: 82.00 MVA PHT: 2.68 MVA Continuity: 2.37 Decel [place]: 2.43 Aortic Valve AoV Pk Fadi: 2.58 AoV Mn Fadi: 1.86 AoV VTI: 0.63 AoV Pk Grad: 27.00 Aov Mn Grad: 16.00 JEN Cont.VTI: 1.24 LVOT LVOT Pk Fadi: 1.30 LVOT Mn Fadi: 1.00 LVOT VTI: 0.31 LVOT Pk Grad: 7.00 LVOT Mn Grad: 4.00 LVOT Diam: 1.80 LVOT Area: 2.54 Diastolic Function MV Pk E: 0.68 MV Pk A: 1.01 E/A: 0.70 E'Medial: 3.26 E/E' Med: 20.90 E' Laterial: 4.24 E/E' Lat: 16.10 Right Ventricle TAPSE (mm): 18.80 TVS' Fadi: 13.70 Tricuspid Valve TR Pk Fadi: 2.44 TR Pk Grad: 24.00 RA Press: 3.00 RVSP: 27.00 Great Vessels Aorta Sinus of Valsalva: 2.70 2.0-3.5 cm Ao Asc: 2.60 2.1-3.4 cm Updated in Other Vendor System with Status of Final Ziggy Camarena MD electronically signed on 07/10/2023 12:20:35 PM with status of Final
== END ==
LOC: HO.CARD 14:55
PROVIDERS: PCP Internal Medicine; Visit Provider Internal Medicine
DX: I35.0 Nonrheumatic aortic (valve) stenosis (principal); I44.7 Left bundle-branch block, unspecified
CPT/HCPCS: 93306; 93356

== ENCOUNTER → 2023-07-09 14:58 | Outpatient (BNV) | payer MEDICARE, MEDICAID, SELFPAY | PROVIDERS: PCP Internal Medicine; Visit Provider Internal Medicine Cardiovascular Disease | DX: I35.0 Nonrheumatic aortic (valve) stenosis (principal) | CPT/HCPCS: 93306 ==

== ENCOUNTER 2024-06-19 12:38 | Outpatient (AMB) | payer MEDICARE, MEDICAID, SELFPAY ==
[2024-06-19 12:42] VITALS: BP 118/60; PULSE 61
--- NOTE | 2024-06-19 12:42 | MHC.OFFVIS ---
Vital Signs 06/19/24 12:42 Height 4 ft 11 in Weight 99 lb 3.328 oz BMI 20.0 BP 118/60 Blood Pressure Location Lt brachial Position Sitting Pulse 61 Pulse Source Monitor Intake Visit Reasons: 1 year fu Intake Note: 1 year follow up Material Flow Analyst Required: No Accompanied by: Daughter Allergies No Known Allergies Allergy (Verified 06/17/23 12:35) Medication List - Last Reconciled 06/19/24 by Charles Fairbanks MD amlodipine 10 mg PO DAILY 90 days atorvastatin 10 mg PO DAILY diclofenac sodium 1% 2 grams topical QID lisinopril-hydrochlorothiazide 20-12.5 mg 2 tabs PO DAILY memantine 10 mg PO BID omega-3 fatty acids 1,000 mg PO DAILY trazodone 50 mg PO BEDTIME PRN HPI Comments Details: Shonda returns for follow-up. She has a history of aortic stenosis as well as left bundle-branch block. Has Alzheimer's dementia. Daughter states that she feels fine. No specific concerns. [facility] Medical History Dementia Other and unspecified hyperlipidemia Essential hypertension LBBB (left bundle branch block) Non-rheumatic aortic stenosis Hypertension Surgical History History of shoulder surgery History of bunionectomy History of rotator cuff surgery History of tubal ligation Family History Father No problems noted. Mother No problems noted. Social History Patient Tobacco Use Status: Never used Tobacco Review of Systems Const Denies weakness ENT Denies dizziness Card Denies chest pain, Denies chest pain with activity, Denies syncope, Denies rapid heart rate, Denies pedal edema, Denies edema, Denies leg edema, Denies lightheadedness, Denies palpitations, Denies dyspnea, Denies dyspnea on exertion and Denies orthopnea Resp Denies cough, Denies dyspnea and Denies dyspnea on exertion GI Denies hematochezia and Denies change in stool character Musc Denies abnormal gait, Denies muscle cramps, Denies muscle weakness, Denies numbness, Denies radiating pain into limb and Denies tingling Neuro Denies abnormal gait, Denies dizziness, Denies syncope, Denies numbness, Denies tingling and Denies weakness Endo Denies palpitations Physical Exam Vital Signs: Last Vital Signs Pulse 61 06/19/24 12:42 BP 118/60 06/19/24 12:42 BMI result Body Mass Index 20.0 Const General: comfortable and no acute distress Orientation/consciousness: patient oriented x3 HEENT Other: Unremarkable Head: Yes normal to inspection Neck Neck: Yes normal visual inspection Chest Chest palpation & inspection: normal inspection of the chest Resp Auscultation: clear to auscultation bilaterally Cardio Palpation: normal PMI Heart sounds: S1 normal heart sound present, S2 normal heart sound present, no gallops, no murmurs and no rubs GI Palpation (GI): Soft to palpation Back/Spine/Pelvis Other: unremarkable Skin General skin exam: no rashes or lesions noted Neuro General: patient oriented x3 Extrem General: Yes normal to inspection Psych Mental Status: mental status grossly normal Office Procedures EKG Details: EKG with underlying sinus rhythm at 61/Min; incomplete left bundle-branch block pattern; nonspecific ST-[place] changes; [place] [address]-[id number], Complete Assessment & Plan Assessment & Plan (1) Non-rheumatic aortic stenosis: Code(s): I35.0 - Nonrheumatic aortic (valve) stenosis Category: Medical Plan: In the echocardiogram from 2023, LVEF is 65-70%. Bsvn-ae-wthltedt aortic stenosis. We will follow this with another echocardiogram next year. Explained to daughter. (2) LBBB (left bundle branch block): Code(s): I44.7 - Left bundle-branch block, unspecified Category: Medical Plan: Chronic finding. Myocardial perfusion imaging study in the past was also unremarkable. (3) Essential hypertension: Code(s): I10 - Essential (primary) hypertension Category: Medical Plan: Stable; remains on amlodipine, lisinopril/hydrochlorothiazide. (4) Dementia: Code(s): F03.90 - Unspecified dementia, unspecified severity, without behavioral disturbance, psychotic disturbance, mood disturbance, and anxiety Category: Medical Plan: Stable per family. Orders: Orders CA echo transthoracic complete 1 Year I35.0 - Nonrheumatic aortic (valve) stenosis Coding Level of Care Code Est Pt Level 4 (47200) Diagnoses Non-rheumatic aortic stenosis I35.0 LBBB (left bundle branch block) I44.7 Essential hypertension I10 Dementia F03.90 CPT Codes EKG - CPT: 73182-[id number], Complete ([id number])
--- OUTSIDE RECORDS SUMMARY | 2024-06-19 13:57 | XMS_ITS | Clinical Summary ---
Author Organization [facility] [address] [facility] Building Address [address] [place], [place] [address], [place] [address] Phone Care Team Providers Care Shaft Tender Name Role Phone Brianna Fajardo MD Primary Care Provider [phone] Allergies Active Allergy Reactions Criticality Noted Date Comments Cat Dander Itching 03/15/2023 Medications Medication Sig Dispensed Refills Start Date End Date Status traZODone (DESYREL) 50 mg tablet TAKE 1 TABLET BY MOUTH EVERYDAY AT BEDTIME 90 tablet 04/21/2024 Active memantine (NAMENDA) 10 mg tablet Take 1 Tablet by mouth 2 Times Daily. 03/14/2024 Active lisinopril-hydroCH LOROthiazide (PRINZIDE,ZESTORET IC) 20-12.5 mg per tablet Take 2 Tablets by mouth daily. 03/14/2024 Active atorvastatin (LIPITOR) 10 mg tablet TAKE 1 TABLET BY MOUTH EVERY DAY 03/06/2024 Active diclofenac (VOLTAREN) 1 % topical gel APPLY 2 G TOPICALLY 4 TIMES DAILY. SHOULDER PAIN 02/03/2024 Active lactose-reduced food (ENSURE ORAL) Take 3 Cans by mouth daily. CATERINA-99 3 cans per day 90 cans per month 11 refills 05/27/2023 Active cholecalciferol (VITAMIN D-3) 25 mcg (1,000 unit) capsule Take by mouth daily. Active omega-3 acid ethyl esters (LOVAZA) 1 gram capsule Take by mouth daily. Active ferrous sulfate 325 mg (65 mg elemental iron) tablet Take 1 Tablet by mouth daily. Every other day Active zinc gluconate 100 mg tablet Take by mouth. Everry other day Active PEDIATRIC MULTIVITAMIN ORAL PEDIATRIC MULTIVITAMINS-F L (MULTI VIT/FL OR) Take by mouth. Active amLODIPine (NORVASC) 10 mg tabletIndications: Essential (primary) hypertension TAKE 1 TABLET BY MOUTH EVERY DAY 90 tablet 1 06/07/2024 Active amLODIPine (NORVASC) 10 mg tablet TAKE 1 TABLET BY MOUTH EVERY DAY 03/06/2024 Discontinued Active Problems Problem Noted Date Diagnosed Date Dementia 04/25/2024 Glaucoma 04/25/2024 Heart murmur 04/25/2024 Overview (04/25/2024): f/u cardiology in [place] HTN (hypertension) 04/25/2024 Hyperlipidemia 04/25/2024 Non-rheumatic aortic stenosis 04/25/2024 Overview (04/25/2024): Panel Monitor Dr. Fairbanks in [place] Osteopenia 04/25/2024 Varicose veins of both lower extremities 021 Cataract 01/25/2019 Mitral valve regurgitation 01/25/2019 Overview (04/25/2024): Tricuspid regurgitation Trochanteric bursitis 07/16/2011 Tendinitis of shoulder 07/06/2011 Encounters Date Type Department Care Team Description 04/20/2024 Telephone Adult Medicine [address] [id number] Brianna Fajardo MD Letter for School/Work from Last 3 Months Immunizations Name Administration Dates Next Due Influenza trivalent, 0.5mL ( Fluad) 65yo and older 03/14/2024,02/25/2022,02/24/2017 Pneumococcal polysaccharide 23 valent (Pneumovax 23) 2yo and older 03/18/2003 Td Tetanus diptheria (Tdvax) 7yo and older 08/14 Zoster Live 11/10/2012 Surgical History Surgery Date Site/Laterality Comments BUNIONECTOMY PROCEDURE: [place] CORRJ HLX VLGS BNCTY SESMDC W/DOUBLE OSTEOTOMY TUBAL LIGATION PROCEDURE: HISTORICAL TUBAL LIGATION ROTATOR CUFF REPAIR PROCEDURE: HISTORICAL ROTATOR CUFF REPAIR; COMMENT: left Medical History Medical History Date Comments Osteopenia DX:Osteopenia Glaucoma DX:Glaucoma HTN (hypertension) DX:HTN (hyper tension) Hyperlipidemia DX:Hyperlipidemi a Dementia (CMS/HCC) DX:Dementia ( HCC) Non-rheumatic aortic stenosis DX :Non-rheumatic aortic stenosis; COMMENT: Panel Monitor Dr. Fairbanks in [place] Cataract 01/25/2019 DX:Cataract Mitral valve regurgitation 01/25/2019 DX:Mi tral valve regurgitation; COMMENT: Tricuspid regurgitation Family History Medical History Relation Name Comments Coronary artery disease Father Relation Name Status Comments Father Social History Tobacco Use Types Packs/Day Years Used Date Smoking Tobacco: Never Smokeless Tobacco: Never Sex and Gender Information Value Date Recorded Sex Assigned at Not on file Gender Identity Not on file Sexual Orientation Not on file Job Start Date Occupation Industry Not on file Not on file Not on file Obstetrics History Last Filed Vital Signs Vital Sign Reading Time Taken Comments Blood Pressure 118/58 03/14/2024 3:44 PM EDT Pulse 72 03/14/2024 3:44 PM EDT Temperature - - Respiratory Rate - - Oxygen Saturation - - Inhaled Oxygen Concentration - - Weight 44 kg (97 lb) 03/14/2024 3:44 PM EDT Height 149.9 cm (4' 11 ) 10/26/2023 10:38 AM EDT Body Mass Index 19.59 10/26/2023 10:38 AM EDT Plan of Treatment Upcoming Encounters Date Type Department Care Team (Late st Contact Info) Description 08/09/2024 2:30 PM EDT Office Visit Adult Medicine [address] [phone] Brianna Fajardo MD [address] [place] [id number] Health Maintenance Due Date Last Done Comments Pneumococcal Vaccine: 65+ Years (2 of 2 - PCV) 09/11/2007 03/18/2003 Zoster Vaccines (2 of 3) 01/05/2013 11/10/2012 RSV Immunization Patients 60 + Years Old (1 - 1-dose 75+ series) 2017 Falls Risk Assessment 04/19/2022 Medicare Annual Wellness Visit 04/19/2022 Social Influencers of Health Screening 04/19/2022 Hypertension/CHF/CAD Annual BMP Blood Test 08/15/2023 08/14/2022 COVID-19 Vaccine (3 - 2023-2 5 season) 2024 05/21/2021, 04/23/2021 Depression Screening 08/03/2024 08/04/2023 Cholesterol Screening (Lipid Panel) 03/15/2028 03/15/2023 Osteoporosis Screening (Bone Density Screening) 01/09/2031 01/09/2021 DTaP,Tdap,and Td Vaccines (2 - Td or Tdap) 08/14/2032 08/14/2022 Influenza Vaccine Completed 03/14/2024, 02/25/2022, 02/24/2017 HIB Vaccines Aged Out No longer eligi ble based on patient's age to complete this topic HPV Vaccines Aged Out No longer eligi ble based on patient's age to complete this topic Hepatitis A Vaccines Aged Out No long er eligible based on patient's age to complete this topic Hepatitis B Vaccines Aged Out No long er eligible based on patient's age to complete this topic IPV Vaccines Aged Out No longer eligi ble based on patient's age to complete this topic MMR Vaccines Aged Out No longer eligi ble based on patient's age to complete this topic Meningococcal ACWY Vaccine Aged Out N o longer eligible based on patient's age to complete this topic RSV Immunization Patients Under 20 months Aged Out No longer eligible b ased on patient's age to complete this topic Varicella Vaccines Aged Out No longer eligible based on patient's age to complete this topic Procedures Procedure Name Priority Date/Time Associated Diagnosis Comments DEPRESSION SCREENING Routine 08/04/2023 LIPID PANEL Routine 03/15/2023 ANNUAL BMP BLOOD TEST Routine 08/14/2022 DEXA SCAN Routine 01/09/2021 9:30 AM EDT from Last 3 Months or Most Recently Relevant to Health Maintenance Results * Depression Screening (08/04/2023) Depression Screening abstracted Historical Provider MD RAVINDRA MONTANEZ E * Lipid panel (03/15/2023) LDL/HDL Ratio 2 0 - 4 Triglycerides 67 0 - 150 mg/dL Cholesterol 168 0 - 200 mg/dL HDL 72 40 mg/dL LDL Cholesterol 83 0 - 100 mg/dL Blood Venous blood specimen / Unknown Historical Provider LAB BLOOD ORDERAB LES * Annual BMP Blood Test (08/14/2022) Pathologist [facility] Annual BMP Blood Test abstracted Historical Provider [facility] * Bone Density Scan (Dexa Scan) (01/09/2021 9:30 AM EDT) Anatomical Region Laterality Modality Other Brianna Fajardo MD HEALTH MAINTENANCE from Last 3 Months or Most Recently Relevant to Health Maintenance Care Teams Shaft Tender Relationship Specialty Start Date End Date Brianna Fajardo MD [address] [place] [address] PCP - General 06/17/22
== END 2024-06-19 13:08 | disposition home or self-care (01) ==
PROVIDERS: PCP Internal Medicine; Visit Provider Internal Medicine
DX: I35.0 Nonrheumatic aortic (valve) stenosis (principal); I44.7 Left bundle-branch block, unspecified; I10 Essential (primary) hypertension; F03.90 Unspecified dementia, unspecified severity, without behavioral disturbance, psychotic disturbance, mood disturbance, and anxiety
CPT/HCPCS: 93010; 99214

== ENCOUNTER → 2024-06-19 12:38 | Outpatient (BNVA) | payer MEDICARE, MEDICAID, SELFPAY | PROVIDERS: PCP Internal Medicine; Visit Provider Internal Medicine | DX: I35.0 Nonrheumatic aortic (valve) stenosis (principal); I44.7 Left bundle-branch block, unspecified; I10 Essential (primary) hypertension; F03.90 Unspecified dementia, unspecified severity, without behavioral disturbance, psychotic disturbance, mood disturbance, and anxiety; R94.31 Abnormal electrocardiogram [ECG] [EKG] | CPT/HCPCS: 93005; 99212 ==

== ENCOUNTER 2024-12-01 22:06 | Observation (INO) | payer OTHER, SELFPAY ==
--- NOTE | 2024-12-01 | ECG_ITS ---
Test Reason : CP Blood Pressure : */* mmHG Vent. Rate : 65 BPM Atrial Rate : 65 BPM P-R Int : 118 ms QRS Dur : 124 ms QT Int : 454 ms P-R-T Axes : 69 -20 111 degrees QTcB Int : 472 ms Normal sinus rhythm Left bundle branch block Abnormal ECG No previous ECGs available Referred By: Generic ED Physician Electronically Signed By: OLMAN KUMARI
--- NOTE | ~2024-12-01 | XR_ITS ---
CLINICAL HISTORY: cp 1 view chest x-ray Comparison: None provided Findings: Heart size is normal. Atherosclerotic vascular disease of the aortic arch. No consolidation, significant pleural effusion or pneumothorax. No acute fracture. Thoracolumbar scoliosis. IMPRESSION: 1. No acute findings. This document has been electronically signed by: Frances Ramos MD on 12/01/2024 23:03:20
--- NOTE | ~2024-12-01 | CT_ITS ---
CLINICAL HISTORY: pain CT angiography chest with contrast. MIP postprocessing. Comparison: CR - XR CHEST 1V - 12/01/24 22:35 EDT Findings: There is appropriate contrast opacification of the main, lobar, and segmental pulmonary arteries. No filling defects identified to suggest pulmonary embolism. Vascular calcification of the thoracic aorta without dissection or aneurysmal dilatation. Overall heart size within normal limits. No pathologically enlarged lymph nodes. No focal areas of consolidation within the lungs. 5 mm noncalcified pulmonary nodule seen within the right middle lobe. No pleural effusion or pneumothorax. No free fluid or free air seen within the upper abdomen. Potential wall thickening of the distal gastric body with air-fluid level seen within the more proximal stomach. Degenerative change throughout the visualized portions of the thoracolumbar spine. Moderate convex right lower thoracic curvature. IMPRESSION: 1. No pulmonary embolus. 2. No acute infiltrates. 5 mm right middle lobe pulmonary nodule. 3. Potential wall thickening of the distal gastric body. This is nonspecific. Correlation with any upper abdominal symptoms is suggested. Patient may benefit from a barium upper GI examination for further evaluation. This document has been electronically signed by: Khang Costa MD on 12/02/2024 07:15:09
[2024-12-01 22:11] VITALS: BP 129/58; PULSE 69; PULSE 78; RESP 15; TEMP 36.4; O2SAT 98; BMI 19.6
[2024-12-01 22:27] LABS: MANUAL DIFF FLAG NO
[2024-12-01 22:28] LABS: Hematocrit 33.1 % (37.0-47.0); Hemoglobin 11.4 g/dl (12.0-16.0); Imm Gran Abs Auto 0.02 X10*3/uL (0.00-0.03); Imm Gran Pct Auto 0.3 % (0.0-0.4); Lymphocytes Absolute Auto 3.7 X10*3/uL (1.2-4.9); Mean Corpuscular HGB Conc 34.4 g/dl (31.0-35.0); Mean Corpuscular Hemoglobin 28.9 pg (27.0-33.0); Mean Corpuscular Volume 83.8 fL (80.0-98.0); NRBC Abs Auto 0.000 X10*3/uL (0.0-0.012); NRBC Pct Auto 0.0 /100WBC (0.0-0.2); Platelet Count 303 X10*3/uL (160-400); Red Blood Count 3.95 X10*6/uL (4.20-5.50); White Blood Count 7.5 X10*3/uL (4.8-10.8)
--- NOTE | 2024-12-01 22:43 | PC.NURSE ---
pt biba from home, a&ox4, respirations even and unlabored. pt reports sudden onset of chest pain, epigastric pain and rlq pain that woke her up from her sleep. pt reports intermittent nausea but denies vomiting. ems administered 324 asprin, placed a 20g n the left ac. pt nsr on tele. 20g placed in right ac labs obtained. daughter at bedside
[2024-12-01 22:44] LABS: Alanine Aminotransferase 17 U/L (0-31); Albumin Level 4.2 g/dL (3.5-5.0); Alkaline Phosphatase 82 U/L (39-117); Anion Gap 15 (12-20); Aspartate Amino Transferase 41 U/L (5-31); Blood Urea Nitrogen 19 mg/dL (9-16); Calcium 9.4 mg/dL (8.4-10.2); Carbon Dioxide 25 mmol/L (22-29); Chloride 105 mmol/L (96-108); Creatinine Clr Calc Pharmacy 28.7; Estimated Glomerular Filt Rate 48; Lipase 13 U/L (8-78); Magnesium 2.0 mg/dL (1.6-2.6); Potassium 3.7 mmol/L (3.3-5.1); Sodium 141 mmol/L (135-145); Total Protein 7.3 g/dL (6.5-8.0)
[2024-12-01 22:50] LABS: Troponin-I High Sensitivity 12.5 ng/L (<3.5-17.0)
[2024-12-01 23:05] LABS: Resp Syncy Virus RNA Qual PCR NEGATIVE (Negative); SARS COV2 PCR INHOUSE NEGATIVE (Negative)
[2024-12-01 23:21] VITALS: BP 143/71; PULSE 75
[2024-12-01] MEDS: Nitroglycerin 2 % Oint 1 GM Packet 0.5 INCH TRANSDERMA (23:21)
--- NOTE | 2024-12-01 23:25 | PC.NURSE ---
nitro paste placed in left chest at this time, vss. pt independent to bathroom at this time
--- NOTE | 2024-12-02 | ED_ITS ---
HPI - Chest Pain General Chief Complaint: Chest Pain Stated Complaint: CP, ABD PAIN Time Seen by Provider: 12/01/24 22:25 Source: patient Mode of arrival: ambulatory Limitations: no limitations History of Present Illness ED Provider: HPI narrative: Patient's history of dementia no known coronary artery disease, moderate aortic stenosis, LBBB comes here as daughter noticed at 19:30 that patient is complaining of chest pain with nausea and sweating she was in severe pain sitting on the side because of pain no shortness a breath no prior history of coronary artery disease patient took aspirin at home and was given another 324 mg aspirin by the EMS on arrival patient is still having mild chest pain no complaining of pain in the epigastric area also Related Data Allergies Allergy/AdvReac Type Severity Reaction Status Date / Time No Known Allergies Allergy Verified 12/01/24 22:15 Review of Systems 2 Review of Systems: Yes all other systems are reviewed and are negative [facility] Social History Social History Patient Tobacco Use Status: Never used Tobacco Smoked in Last 30 Days: No Use of substances other than those prescribed or required for medical reasons: No Advance Directives: No Advance Directives Information Provided: No Do you have a plan to hurt others: No Plan Nutrition Risks: No Nutritional Risk Physical Exam 2 Vital Signs: Vital Signs: Last Vital Signs Temp 97.9 F 12/02/24 06:18 Pulse 63 12/02/24 06:18 Resp 18 12/02/24 06:18 BP 127/48 L 12/02/24 06:18 Pulse Ox 97 12/02/24 06:18 O2 Del Method Room Air 12/02/24 06:18 BMI result Body Mass Index 19.6 Appearance: Alert. Oriented X3. No acute distress. Eyes: PERRLA, No Nystagmus ENT: Pharynx normal. Oral Mucosa moist Neck: Normal inspection. Neck supple. CVS: Normal heart rate and rhythm. Pulses normal. Aortic systolic ejection murmur at the base 2/6 Respiratory: No respiratory distress. Equal air entry bilateral, no wheezing/rales/rhonchi Abdomen: Soft and nontender. Bowel sounds are present, no mass palpable, no CVA tenderness Skin: Skin warm and dry. Normal skin color. Normal skin turgor. Extremities: No lower extremity edema. No calf tenderness Neuro: Oriented X 3. No motor deficit. No sensory deficit.No cerebellar signs , cranial nerves II-XII intact Medications Administered Generic Name Dose Route Start Last Admin Trade Name Freq PRN Reason Stop Dose Admin Heparin Sodium (Porcine) 5,000 unit 12/02/24 01:30 12/02/24 01:59 Heparin Sodium,Porcine 5,000 Unit/Ml Vial SUBCUT 5,000 unit Q8H LOUISE Administration Sodium Chloride 3 ml 12/02/24 08:00 12/02/24 07:07 0.9 % Sodium Chloride Flush 3 Ml Syringe IVFLUSH Not Given QSHIFT LOUISE Discontinued Medications Generic Name Dose Route Start Last Admin Trade Name Freq PRN Reason Stop Dose Admin Iohexol 65 ml 12/02/24 05:57 12/02/24 06:02 Iohexol 350 Mg/Ml 100 Ml Infus..Btl IV 12/02/24 05:58 65 ml ONCE ONE Administration Nitroglycerin 0.5 inch 12/01/24 23:11 12/01/24 23:21 Nitroglycerin 2 % Oint 1 Gm Packet TRANSDERMA 12/01/24 23:12 0.5 inch ONCE ONE Administration Medical Decision Making Medical Decision Making [facility] Narrative: Patient's dementia with moderate aortic stenosis LBBB comes here with chest pain EKG without any ischemic changes no significant delta change in troponin will admit patient for possible ACS with moderate aortic stenosis Differential Diagnosis Differential Diagnoses: The differential diagnosis associated with the presentation includes ACS/angina/musculoskeletal/pneumonia/pneumothorax/PE Admission/Observation Consideration of admission/observation: Escalation of care including admission/observation considered Consult Healthcare Provider Management of the patient was discussed with: Hospitalist Lab Data [facility] Lab Attestation statement: I reviewed the patient's lab results. 12/02/24 06:23 12/02/24 06:23 Labs: Lab Results 12/01/24 12/02/24 Range/Units 22:23 00:22 WBC 7.5 (4.8-10.8) X10*3/uL RBC 3.95 L (4.20-5.50) X10*6/uL Hgb 11.4 L (12.0-16.0) g/dl Hct 33.1 L (37.0-47.0) % MCV 83.8 (80.0-98.0) fL MCH 28.9 (27.0-33.0) pg MCHC 34.4 (31.0-35.0) g/dl RDW 13.5 (11.0-16.0) % Plt Count 303 (160-400) X10*3/uL MPV 10.8 (9.4-12.3) fL Immature Gran % (Auto) 0.3 (0.0-0.4) % Neut % (Auto) 43.9 L (45-73) % Lymph % (Auto) 48.9 H (20-40) % [place] % (Auto) 3.6 (2-11) % Eos % (Auto) 2.9 (0-4) % Baso % (Auto) 0.4 (0-2) % Lymph # (Auto) 3.7 (1.2-4.9) X10*3/uL [place] # (Auto) 0.3 (0.1-1.2) X10*3/uL Eos # (Auto) 0.2 (0.0-0.4) X10*3/uL Baso # (Auto) 0.0 (0.0-0.2) X10*3/uL Abs Immat Gran (auto) 0.02 (0.00-0.03) X10*3/uL Absolute Neuts (auto) 3.3 (2.0-8.3) x10*3/uL Absolute Nucleated RBC 0.000 (0.0-0.012) X10*3/uL Nucleated RBC % (auto) 0.0 (0.0-0.2) /100WBC Sodium 141 (135-145) mmol/L Potassium 3.7 (3.3-5.1) mmol/L Chloride 105 (96-108) mmol/L Carbon Dioxide 25 (22-29) mmol/L Anion Gap 15 (12-20) BUN 19 H (9-16) mg/dL Creatinine 1.10 (0.5-1.4) mg/dL Estim Creat Clear Calc 28.7 Estimated GFR 48 Random Glucose 144 H (60-115) mg/dL Calcium 9.4 (8.4-10.2) mg/dL Magnesium 2.0 (1.6-2.6) mg/dL Total Bilirubin 0.4 (0.0-1.0) mg/dL AST 41 H (5-31) U/L ALT 17 (0-31) U/L Alkaline Phosphatase 82 (39-117) U/L Troponin I High Sens 12.5 14.8 (<3.5-17.0) ng/L Total Protein 7.3 (6.5-8.0) g/dL Albumin 4.2 (3.5-5.0) g/dL Lipase 13 (8-78) U/L Influenza Type A (PCR) NEGATIVE (Negative) Influenza Type B (PCR) NEGATIVE (Negative) RSV RNA Qual (PCR) NEGATIVE (Negative) SARS-CoV-2 RNA (RT-PCR) NEGATIVE (Negative) Independent Interpretation I performed an independent interpretation of an: EKG Interpretation: Normal sinus rhythm heart rate 65 beats per minute no acute ST-T changes left bundle-branch block no acute ischemia Radiology Impression Discussion of test interpretation with radiology: I have reviewed the radiologist's reading. Critical Care Time Critical Care Time Critical Care Time: Yes Total Critical Care Time: 40 Attestation: [place] [id number] CT Scan Report Signed Patient: Berhane Ayala MR#: [id number] : 06/15/1956 Acct:[id number] Age/Sex: 68 / M ADM Date: 12/01/24 Loc: .ED Attending Dr: Ordering Physician: Otto Kelly MD Date of Service: 12/01/24 Procedure(s): CT abdomen pelvis w IV con Accession Number(s): [id number] cc: Woo Cabrera MD; Otto Kelly MD~ Report Number: [id number]: Total DLP = 283.00 mGy-cm CLINICAL HISTORY: Unexplained hypoglycemia? Pancreatic tumor CT abdomen and pelvis with contrast Comparison: CT/SR - CT ABDOMEN PELVIS WITH IV CONTRAST - 02/09/23 11:27 EDT Findings: The lung bases are clear. Hepatic steatosis. Periportal edema. Subcentimeter right hepatic lobe cyst. Pancreatic atrophy, new from prior. No discrete mass seen. Main pancreatic duct is not dilated. Gallbladder, spleen, and adrenal glands are within normal limits. No hydronephrosis. Symmetric contrast enhancement of the kidneys. Right renal cysts. Postsurgical changes in the stomach. No bowel obstruction, pneumatosis or pneumoperitoneum. Dilated main portal vein measuring up to 1.7 cm, similar to prior. Portal venous system is patent. Aortic atherosclerosis. No aneurysm. No enlarged abdominopelvic lymph nodes. 9 mm subcutaneous soft tissue nodule in the left lower anterior abdominal wall, new from prior. Mild diffuse urinary bladder wall thickening. Degenerative changes of the spine. No suspicious osseous lesions. IMPRESSION: 1. Pancreatic atrophy, new from prior. No discrete mass seen. 2. Mild diffuse urinary bladder wall thickening, correlate for cystitis. 3. Nonspecific periportal edema. 4. 9 mm subcutaneous soft tissue nodule in the left lower anterior abdominal wall, new from prior ( axial image 43/94 ). If there is a history of malignancy, consider biopsy/tissue sampling. This document has been electronically signed by: Aleksey Flores MD on 12/02/2024 01:04:57 Discharge Plan Discharge Clinical Impression: Chest pain, History of left bundle branch block, Dementia Patient Disposition: Admitted As Inpatient Interventions: Admission Worksheet (ED) Last Done: 12/02/24 05:19
[2024-12-02 00:23] VITALS: BP 115/55; PULSE 63; RESP 12; TEMP 36.5; O2SAT 96
[2024-12-02 00:56] LABS: Troponin-I High Sensitivity 14.8 ng/L (<3.5-17.0)
--- NOTE | 2024-12-02 01:37 | P.HPHOSP_ITS ---
History of Present Illness Date of Service: 12/02/24 Chief Complaint: Chest pain 84-year-old female with a past medical history of HTN, HLD, dementia presented to the hospital today with a chief complaint of chest pain. Patient is a poor historian. Denies any chest pain at the time of my interview. Denies any nausea vomiting or diarrhea. Most of history obtained from the records and the staff. Deferred as the patient developed chest pain located in the center of the chest nonradiating associated nausea and diaphoresis at home. Patient unsure because of the pain. Subsequently family member reported to the ER for further evaluation. Patient denies any GI symptoms. Denies any fever chills cough or sputum production. Review of all other systems is negative except mentioned above ER course: Per ER team, patient's EKG showed left bundle branch block; troponins 12-14; patient received aspirin 325 mg. [facility] Social History Smoked in Last 30 Days: No Use of substances other than those prescribed or required for medical reasons: No Advance Directives: No Advance Directives Information Provided: No Do you have a plan to hurt others: No Plan Meds Allergies Allergy/AdvReac Type Severity Reaction Status Date / Time No Known Allergies Allergy Verified 12/01/24 22:15 Active Medications: Current Medications Acetaminophen (Acetaminophen 325 Mg Tablet) 650 mg PO Q6H PRN PRN Reason: Pain, Mild 1-3,fever,headache Calcium Carbonate (Calcium Carbonate 750 Mg Tab.Chew) 750 mg PO Q4H PRN PRN Reason: Heartburn Heparin Sodium (Porcine) (Heparin Sodium,Porcine 5,000 Unit/Ml Vial) 5,000 unit SUBCUT Q8H [facility] Magnesium Hydroxide (Milk Of Magnesia 30 Ml Oral.Susp) 30 ml PO DAILY PRN PRN Reason: Constipation Melatonin (Melatonin 3 Mg Tablet) 6 mg PO BEDTIME PRN PRN Reason: Insomnia Sodium Chloride (0.9 % Sodium Chloride Flush 3 Ml Syringe) 3 ml IVFLUSH QSHIFT [facility] Physical Exam 2 Vital Signs and Narrative: Vital Signs: Last Vital Signs Temp 97.7 F 12/02/24 00:23 Pulse 63 12/02/24 00:23 Resp 12 12/02/24 00:23 BP 115/55 L 12/02/24 00:23 Pulse Ox 96 12/02/24 00:23 O2 Del Method Room Air 12/02/24 00:23 BMI result Body Mass Index 19.6 Gen: Appears be in no acute distress HEENT: NCAT, Moist mucosa. Pulmonary: Vesicular breath sounds, fair air entry CVS: Normal S1-S2 Abdomen: BS+, Soft, Nontender Extremities: Warm well perfused Neuro: Alert and awake. Results Labs 12/01/24 22:23 12/01/24 22:23 Labs: Laboratory Results - last 24 hr 12/01/24 22:23 MCV 83.8 MCH 28.9 MCHC 34.4 RDW 13.5 Plt Count 303 MPV 10.8 Immature Gran % (Auto) 0.3 Neut % (Auto) 43.9 L Lymph % (Auto) 48.9 H [place] % (Auto) 3.6 Eos % (Auto) 2.9 Baso % (Auto) 0.4 Lymph # (Auto) 3.7 [place] # (Auto) 0.3 Eos # (Auto) 0.2 Baso # (Auto) 0.0 Abs Immat Gran (auto) 0.02 Absolute Neuts (auto) 3.3 Absolute Nucleated RBC 0.000 Nucleated RBC % (auto) 0.0 Anion Gap 15 Estim Creat Clear Calc 28.7 Estimated GFR 48 Random Glucose 144 H Calcium 9.4 Magnesium 2.0 Total Bilirubin 0.4 AST 41 H ALT 17 Alkaline Phosphatase 82 Total Protein 7.3 Albumin 4.2 Lipase 13 Influenza Type A (PCR) NEGATIVE Influenza Type B (PCR) NEGATIVE RSV RNA Qual (PCR) NEGATIVE SARS-CoV-2 RNA (RT-PCR) NEGATIVE Assessment and Plan (1) Chest pain: Qualifiers: Chest pain type: unspecified Qualified Code(s): R07.9 - Chest pain, unspecified Status: Acute Plan 84-year-old female with a past medical history of HTN, HLD, dementia presented to the hospital today with a chief complaint of chest pain. Chest Pain: Patient chest pain currently improving EKG showed LBBB. No prior EKG to compare Troponin 12-14 Will obtain D-dimer Telemetry Cardiology consult Continue home Lipitor Patient received 324 mg of aspirin Echocardiogram Hypertension: Continue home amlodipine Dementia: Continue home memantine GI prophylaxis: Pepcid DVT prophylaxis: SubQ heparin Code status: Full code Quality Stroke Does the patient have a stroke diagnosis?: No VTE Prior VTE?: No VTE Risk Level:: Medical - moderate - high VTE Device Contraindication: Treatment Not Indicated VTE Drug Contraindication: N/A - Med Ordered
[2024-12-02 02:01] VITALS: BP 159/73; PULSE 99; RESP 17; TEMP 36.6; O2SAT 100
--- NOTE | 2024-12-02 02:01 | PC.NURSE ---
niro paste removed at this time, pt states chest pain has subsided. vss. labs obtained, pt medicated per jul.
[2024-12-02 02:09] LABS: INTERNATIONAL NORM RATIO 1.0 (0.9-1.1); Prothrombin Time 11.0 SEC (10.9-12.4)
[2024-12-02 02:11] LABS: D Dimer High Sensitivity 1050 NG/ML
[2024-12-02 02:12] LABS: Partial Thromboplastin Time 31.2 SEC (26.0-36.8)
--- NOTE | 2024-12-02 05:27 | PC.NURSE ---
this rn noted pt d dimer to be elevated. contacted at this time and recommended ct scan of chest order placed by provider, pt taken to ct at this time
[2024-12-02] MEDS: iohexoL 350 MG/ML 100 ML INFUS..BTL 65 ML IV (06:02)
[2024-12-02 06:18] VITALS: BP 127/48; PULSE 63; RESP 18; TEMP 36.6; O2SAT 97
[2024-12-02 06:28] LABS: MANUAL DIFF FLAG NO
[2024-12-02 06:33] LABS: Hematocrit 31.6 % (37.0-47.0); Hemoglobin 11.0 g/dl (12.0-16.0); Imm Gran Abs Auto 0.03 X10*3/uL (0.00-0.03); Imm Gran Pct Auto 0.3 % (0.0-0.4); Lymphocytes Absolute Auto 1.4 X10*3/uL (1.2-4.9); Mean Corpuscular HGB Conc 34.8 g/dl (31.0-35.0); Mean Corpuscular Hemoglobin 29.3 pg (27.0-33.0); Mean Corpuscular Volume 84.0 fL (80.0-98.0); NRBC Abs Auto 0.000 X10*3/uL (0.0-0.012); NRBC Pct Auto 0.0 /100WBC (0.0-0.2); Platelet Count 296 X10*3/uL (160-400); Red Blood Count 3.76 X10*6/uL (4.20-5.50); White Blood Count 11.8 X10*3/uL (4.8-10.8)
[2024-12-02 06:45] LABS: Alanine Aminotransferase 23 U/L (0-31); Albumin Level 4.0 g/dL (3.5-5.0); Alkaline Phosphatase 73 U/L (39-117); Anion Gap 12 (12-20); Aspartate Amino Transferase 23 U/L (5-31); Blood Urea Nitrogen 19 mg/dL (9-16); Calcium 9.1 mg/dL (8.4-10.2); Carbon Dioxide 27 mmol/L (22-29); Chloride 104 mmol/L (96-108); Creatinine Clr Calc Pharmacy 33.5; Estimated Glomerular Filt Rate 58; Potassium 3.4 mmol/L (3.3-5.1); Sodium 140 mmol/L (135-145); Total Protein 6.6 g/dL (6.5-8.0)
--- NOTE | 2024-12-02 09:04 | PHA.MEDREC ---
Pharmacy Consult ? Medication Reconciliation Pharmacy has completed the medication reconciliation.Spoke with family at bedside
[2024-12-02 09:09] VITALS: BP 125/57; PULSE 74; RESP 15; TEMP 36.6; O2SAT 98
--- NOTE | 2024-12-02 09:27 | P.CONCA_ITS ---
History of Present Illness History of Present Illness Date of Service: 12/02/24 Chief complaint: Chest pain Narrative: This is a cardiology consultation regarding chest pain. Of note, patient has 2 medical record numbers and her prior office notes or any different short. She has a history of aortic stenosis and left bundle-branch block as well as Alzheimer's dementia. Last seen around July of this year. At that time, thought to have [id number] aortic stenosis. She also has a chronic left bundle-branch block but a prior myocardial perfusion imaging study was unremarkable. She has ongoing dementia/forgetfulness issues. Current admissions because of chest pain. Discussed with the daughter at the bedside. Apparently, she was having some chest pain and diaphoresis and her sister had noticed this and eventually brought to ER for evaluation. Prior to this, some cold-type symptoms. No clear evidence of ACS in this admission. Currently, she states she feels fine. Patient's daughter states that patient does not know where she is and she is not aware of the fact that she is in the emergency room. Review of Systems 2 Review of Systems: Yes all other systems are reviewed and are negative Constitutional: Constitutional: Reports as per HPI and Reports no additional constitutional complaints Eyes: Eyes: Reports as per HPI and Denies no additional eye complaints ENT: Denies system reviewed and no additional complaints, except as documented and Reports as per HPI Cardiovascular: Cardiovascular: Reports as per HPI, Reports no additional cardiovascular complaints, Denies acrocyanosis, Denies cool extremities, Reports chest pain, Denies leg edema, Denies lightheadedness, Denies palpitations and Denies dyspnea Respiratory: Respiratory: Reports as per HPI, Denies no additional respiratory complaints and Denies dyspnea Gastrointestinal: Gastrointestinal: Reports as per HPI and Denies no additional gastrointestinal complaints Genitourinary: Genitourinary: Reports as per HPI Musculoskeletal: Musculoskeletal: Reports no additional musculoskeletal complaints and Reports as per HPI Integumentary/Breasts: Skin/Breast: Reports system reviewed and no additional complaints, except as docu Neurologic: Reports system reviewed and no additional complaints, except as documented and Reports as per HPI Psychiatric: Psychiatric: Reports no additional psychiatric complaints and Reports as per HPI Endocrine: Endocrine: Reports no additional endocrine complaints, Reports as per HPI and Denies palpitations Hematologic/Lymphatic: Hematologic/Lymphatic: Reports no additional hematologic/lymphatic complaints and Reports as per HPI Allergic/Immunologic: Allergic/Immunologic: Reports no additional allergic/immunologic complaints and Reports as per [facility] Family History Pertinent family history: No pertinent family history Social History Social History Patient Tobacco Use Status: Never used Tobacco service: No Meds Allergies Allergy/AdvReac Type Severity Reaction Status Date / Time No Known Allergies Allergy Verified 12/01/24 22:15 Active Medications: Current Medications Acetaminophen (Acetaminophen 325 Mg Tablet) 650 mg PO Q6H PRN PRN Reason: Pain, Mild 1-3,fever,headache Amlodipine Besylate (Amlodipine Besylate 10 Mg Tablet) 10 mg PO DAILY [facility]; Protocol Last Admin: 12/02/24 09:09 Dose: 10 mg Atorvastatin Calcium (Atorvastatin Calcium 40 Mg Tablet) 40 mg PO BEDTIME LOUISE Calcium Carbonate (Calcium Carbonate 750 Mg Tab.Chew) 750 mg PO Q4H PRN PRN Reason: Heartburn Famotidine (Famotidine/Pf 20 Mg/2 Ml Vial) 20 mg IVPUSH BID [facility] Last Admin: 12/02/24 09:06 Dose: 20 mg Heparin Sodium (Porcine) (Heparin Sodium,Porcine 5,000 Unit/Ml Vial) 5,000 unit SUBCUT Q8H [facility] Last Admin: 12/02/24 09:07 Dose: Not Given Magnesium Hydroxide (Milk Of Magnesia 30 Ml Oral.Susp) 30 ml PO DAILY PRN PRN Reason: Constipation Melatonin (Melatonin 3 Mg Tablet) 6 mg PO BEDTIME PRN PRN Reason: Insomnia Memantine (Memantine Hcl 10 Mg Tablet) 10 mg PO DAILY [facility] Last Admin: 12/02/24 09:06 Dose: 10 mg Nitroglycerin (Nitroglycerin 0.4 Mg Tab.Subl) 0.4 mg SUBLINGUAL Q5MX3 PRN PRN Reason: Chest Pain Sodium Chloride (0.9 % Sodium Chloride Flush 3 Ml Syringe) 3 ml IVFLUSH QSHIFT [facility] Last Admin: 12/02/24 07:07 Dose: Not Given Trazodone HCl (Trazodone Hcl 50 Mg Tablet) 50 mg PO BEDTIME PRN PRN Reason: Sleep Home Medications ?Medication ?Instructions ?Recorded ?Confirmed ?Last Taken ?Type amlodipine 10 mg tablet 10 mg PO DAILY 12/02/2411/1412/01/24 History atorvastatin 10 mg tablet 10 mg PO DAILY 12/02/2411/1412/01/24 History diclofenac sodium 1 % topical gel 2 g topical QID PRN leg pain 12/02/24 12/02/24 12/01/24 History lisinopril 20 2 tab PO DAILY 12/02/2411/1412/01/24 History mg-hydrochlorothiazide 12.5 mg tablet melatonin 10 mg tablet 20 mg PO BEDTIME 12/02/2412/01/24 History memantine 10 mg tablet 10 mg PO BID 12/02/2412/01/24 History trazodone 50 mg tablet 50 mg PO BEDTIME 12/02/2412/01/24 History Physical Exam 2 Vital Signs: Vital Signs: Last Vital Signs Temp 97.8 F 12/02/24 09:09 Pulse 74 12/02/24 09:09 Resp 15 12/02/24 09:09 BP 125/57 L 12/02/24 09:09 Pulse Ox 98 12/02/24 09:09 O2 Del Method Room Air 12/02/24 09:09 BMI result Body Mass Index 19.6 Const: General: comfortable and no acute distress O rientation/consciousness: No patient oriented x3 HEENT: Other: Unremarkable Head: Yes normal to inspection Neck: Neck: Yes normal visual inspection Chest: Chest palpation & inspection: normal inspection of the chest Resp: Auscultation: clear to auscultation bilaterally Cardio: Palpation: normal PMI Heart sounds: S1 normal heart sound present, S2 normal heart sound present, no gallops, Murmur heart sound present systolic II/ and no rubs GI: Palpation (GI): Soft to palpation Back/Spine/Pelvis: Other: unremarkable Skin: General skin exam: no rashes or lesions noted Neuro: General: No patient oriented x3 Extrem: General: Yes normal to inspection Psych: Mental Status: mental status grossly abnormal Objective Labs and Meds 12/02/24 06:23 12/02/24 06:23 Lab results: Laboratory Results - last 24 hr 12/01/24 12/02/24 12/02/24 22:23 00:22 01:58 WBC 7.5 RBC 3.95 L Hgb 11.4 L Hct 33.1 L MCV 83.8 MCH 28.9 MCHC 34.4 RDW 13.5 Plt Count 303 MPV 10.8 Immature Gran % (Auto) 0.3 Neut % (Auto) 43.9 L Lymph % (Auto) 48.9 H [place] % (Auto) 3.6 Eos % (Auto) 2.9 Baso % (Auto) 0.4 Lymph # (Auto) 3.7 [place] # (Auto) 0.3 Eos # (Auto) 0.2 Baso # (Auto) 0.0 Abs Immat Gran (auto) 0.02 Absolute Neuts (auto) 3.3 Absolute Nucleated RBC 0.000 Nucleated RBC % (auto) 0.0 PT 11.0 INR 1.0 APTT 31.2 D-Dimer High Sensitivty 1050 Sodium 141 Potassium 3.7 Chloride 105 Carbon Dioxide 25 Anion Gap 15 BUN 19 H Creatinine 1.10 Estim Creat Clear Calc 28.7 Estimated GFR 48 Random Glucose 144 H Calcium 9.4 Magnesium 2.0 Total Bilirubin 0.4 AST 41 H ALT 17 Alkaline Phosphatase 82 Troponin I High Sens 12.5 14.8 Total Protein 7.3 Albumin 4.2 Lipase 13 Influenza Type A (PCR) NEGATIVE Influenza Type B (PCR) NEGATIVE RSV RNA Qual (PCR) NEGATIVE SARS-CoV-2 RNA (RT-PCR) NEGATIVE 12/02/24 06:23 WBC 11.8 H RBC 3.76 L Hgb 11.0 L Hct 31.6 L MCV 84.0 MCH 29.3 MCHC 34.8 RDW 13.5 Plt Count 296 MPV 10.7 Immature Gran % (Auto) 0.3 Neut % (Auto) 82.2 H Lymph % (Auto) 11.4 L [place] % (Auto) 5.2 Eos % (Auto) 0.6 Baso % (Auto) 0.3 Lymph # (Auto) 1.4 [place] # (Auto) 0.6 Eos # (Auto) 0.1 Baso # (Auto) 0.0 Abs Immat Gran (auto) 0.03 Absolute Neuts (auto) 9.7 H Absolute Nucleated RBC 0.000 Nucleated RBC % (auto) 0.0 PT INR APTT D-Dimer High Sensitivty Sodium 140 Potassium 3.4 Chloride 104 Carbon Dioxide 27 Anion Gap 12 BUN 19 H Creatinine 0.93 Estim Creat Clear Calc 33.5 Estimated GFR 58 Random Glucose 105 Calcium 9.1 Magnesium Total Bilirubin 0.4 AST 23 ALT 23 Alkaline Phosphatase 73 Troponin I High Sens Total Protein 6.6 Albumin 4.0 Lipase Influenza Type A (PCR) Influenza Type B (PCR) RSV RNA Qual (PCR) SARS-CoV-2 RNA (RT-PCR) ECG Interpretation: EKG with underlying sinus rhythm at 65/Min; left bundle-branch block pattern. Assessment and Plan (1) Chest pain: Status: Acute (2) Left bundle branch block: Status: Acute (3) Nonrheumatic aortic (valve) stenosis: Status: Acute (4) Dementia: Status: Acute Plan High sensitivity troponins unremarkable. In the last echocardiogram, preserved LVEF with [id number] aortic stenosis. Overall, isolated episode of chest pain but without any objective data to support acute coronary syndrome. Considering her dementia and lack of comprehension, normal biomarkers, conservative cardiac care. Discussed with daughter about this and she would like to take at home. We can arrange follow-up in clinic. Procedures Date of Service Date of Service: 12/02/24
--- NOTE | 2024-12-02 09:31 | MHC.CM.PN ---
CM MET WITH PT AND DAUGHTER/HCP, ZHEN, AT BEDSIDE PT LIVES WITH HER DAUGHTER, SHANAE, DURING THE WEEK, AND SPENDS WEEKENDS WITH ZHEN PT HAS SYSTEMS TECHNOLOGIST HOURS BUT FAMILY PROVIDES 24/7 CARE PT HAS A ROLLATOR SHE USES FOR LONG DISTANCES ONLY COPY OF HCP REQUESTED PCP: DESHAWN HANNAH OBSERVATION NOTICE DELIVERED DCP: HOME WITH RESUMPTION OF SYSTEMS TECHNOLOGIST/FAMILY CARE DAUGHTER TO TRANSPORT
--- NOTE | 2024-12-02 10:19 | PM.DS ---
DS: Providers Provider Date of Service: 12/02/24 Date of admission: 12/02/24 01:30 Date of discharge: 12/02/24 Primary care physician: Brianna Fajardo MD Consults: 12/02/24 01:33 Consult to Cardiology Routine Consulting Provider: [facility] Reason for consultation: chest pain Has provider been notified: No DS: Diagnosis Discharge Diagnosis (1) Chest pain: Status: Acute (2) Left bundle branch block: Status: Acute (3) Nonrheumatic aortic (valve) stenosis: Status: Acute (4) Dementia: Status: Acute DS: Summary Hospital Course Hospital Course: History and physical as per admitting provider. 84-year-old female with a past medical history of HTN, HLD, dementia presented to the hospital today with a chief complaint of chest pain. Patient is a poor historian. Denies any chest pain at the time of my interview. Denies any nausea vomiting or diarrhea. Most of history obtained from the records and the staff. Deferred as the patient developed chest pain located in the center of the chest nonradiating associated nausea and diaphoresis at home. Patient unsure because of the pain. Subsequently family member reported to the ER for further evaluation. Patient denies any GI symptoms. Denies any fever chills cough or sputum production. Review of all other systems is negative except mentioned above ER course: Per ER team, patient's EKG showed left bundle branch block; troponins 12-14; patient received aspirin 325 mg. 84-year-old woman placed on observation for chest pain with a history of left bundle branch block. No further chest pain noted. Troponin flat, negative D-dimer, pain noncardiac. Seen evaluated by Cardiology who stated patient to be discharged and no further workup at this time. Patient is to continue all of her normal medications. Hypertension. Continue amlodipine Dementia. According to patient's daughter she thinks this may have been of a panic attack rather than cardiac chest pain. Patient should continue her normal home medications Time Attestation Discharge Coordination Time (in mins): 40 Quality: Safe Use of Opioids Does Pt have an Active Cancer Diagnosis on the Problem List?: No Quality: Stroke Does the patient have a stroke diagnosis?: No Physical Exam Exam: Exam: Appearing in no acute distress head is normocephalic atraumatic eyes pupils are PERRLA sclera is anicteric mouth throat mucous membranes are intact and moist neck is supple no lymphadenopathy, no JVD noted lung sounds are clear to auscultation heart regular rate rhythm, clear S1, S2 positive bowel sounds, abdomen is soft, nontender neuro patient is alert, intermittently confused Vital Signs: Vital Signs: Last Vital Signs Temp 97.8 F 12/02/24 09:09 Pulse 74 12/02/24 09:09 Resp 15 12/02/24 09:09 BP 125/57 L 12/02/24 09:09 Pulse Ox 98 12/02/24 09:09 O2 Del Method Room Air 12/02/24 09:09 BMI result Body Mass Index 19.6 DS: Data Data Completed and Pending Labs on day of discharge: Laboratory Results - last 24 hr 12/01/24 12/02/24 12/02/24 22:23 00:22 01:58 WBC 7.5 RBC 3.95 L Hgb 11.4 L Hct 33.1 L MCV 83.8 MCH 28.9 MCHC 34.4 RDW 13.5 Plt Count 303 MPV 10.8 Immature Gran % (Auto) 0.3 Neut % (Auto) 43.9 L Lymph % (Auto) 48.9 H Arthur % (Auto) 3.6 Eos % (Auto) 2.9 Baso % (Auto) 0.4 Lymph # (Auto) 3.7 Arthur # (Auto) 0.3 Eos # (Auto) 0.2 Baso # (Auto) 0.0 Abs Immat Gran (auto) 0.02 Absolute Neuts (auto) 3.3 Absolute Nucleated RBC 0.000 Nucleated RBC % (auto) 0.0 PT 11.0 INR 1.0 APTT 31.2 D-Dimer High Sensitivty 1050 Sodium 141 Potassium 3.7 Chloride 105 Carbon Dioxide 25 Anion Gap 15 BUN 19 H Creatinine 1.10 Estim Creat Clear Calc 28.7 Estimated GFR 48 Random Glucose 144 H Calcium 9.4 Magnesium 2.0 Total Bilirubin 0.4 AST 41 H ALT 17 Alkaline Phosphatase 82 Troponin I High Sens 12.5 14.8 Total Protein 7.3 Albumin 4.2 Lipase 13 Influenza Type A (PCR) NEGATIVE Influenza Type B (PCR) NEGATIVE RSV RNA Qual (PCR) NEGATIVE SARS-CoV-2 RNA (RT-PCR) NEGATIVE 12/02/24 06:23 WBC 11.8 H RBC 3.76 L Hgb 11.0 L Hct 31.6 L MCV 84.0 MCH 29.3 MCHC 34.8 RDW 13.5 Plt Count 296 MPV 10.7 Immature Gran % (Auto) 0.3 Neut % (Auto) 82.2 H Lymph % (Auto) 11.4 L Arthur % (Auto) 5.2 Eos % (Auto) 0.6 Baso % (Auto) 0.3 Lymph # (Auto) 1.4 Arthur # (Auto) 0.6 Eos # (Auto) 0.1 Baso # (Auto) 0.0 Abs Immat Gran (auto) 0.03 Absolute Neuts (auto) 9.7 H Absolute Nucleated RBC 0.000 Nucleated RBC % (auto) 0.0 PT INR APTT D-Dimer High Sensitivty Sodium 140 Potassium 3.4 Chloride 104 Carbon Dioxide 27 Anion Gap 12 BUN 19 H Creatinine 0.93 Estim Creat Clear Calc 33.5 Estimated GFR 58 Random Glucose 105 Calcium 9.1 Magnesium Total Bilirubin 0.4 AST 23 ALT 23 Alkaline Phosphatase 73 Troponin I High Sens Total Protein 6.6 Albumin 4.0 Lipase Influenza Type A (PCR) Influenza Type B (PCR) RSV RNA Qual (PCR) SARS-CoV-2 RNA (RT-PCR) Discharge Plan Discharge Anticipated Discharge Date/Time: 12/02/24 10:18 Patient Disposition: Home, Self-Care Discharge Diagnosis: Chest pain, noncardiac Referrals: Brianna Fajardo MD [Primary Care Provider, Internal Medicine] - 1 Week Discharge Medications: Continued trazodone 50 mg tablet 50 mg PO BEDTIME atorvastatin 10 mg tablet 10 mg PO DAILY lisinopril-hydrochlorothiazide 20-12.5 mg tablet 2 tab PO DAILY amlodipine 10 mg tablet 10 mg PO DAILY memantine 10 mg tablet 10 mg PO BID diclofenac sodium 1 % gel 2 g topical QID PRN (Reason: leg pain) melatonin 10 mg Tablet 20 mg PO BEDTIME Discharge Orders: Discharge Order (Routine); Ordered 12/02/24 Ordered By: Sandy Stevenson Diet: Advance to usual diet Activity on Discharge: As tolerated Stand Alone Forms: Patient Portal Discharge page Print Language: Slovenian Care Plan Goals: Continue current medication regimen Health Concerns: Chest pain, noncardiac Plan of Treatment: Follow up with primary care provider as needed Take all medications as prescribed Assessment: See discharge summary
== END 2024-12-02 10:39 | disposition home or self-care (01) ==
LOC: HO.ED 23:03 → HO.EDOVER 12-02 02:02
PROVIDERS: Admitting Provider Hospitalist; Emergency Provider Internal Medicine; PCP Internal Medicine; Visit Provider Nurse Practitioner Acute Care
DX: R07.9 Chest pain, unspecified (principal); I44.7 Left bundle-branch block, unspecified; I35.0 Nonrheumatic aortic (valve) stenosis; F03.90 Unspecified dementia, unspecified severity, without behavioral disturbance, psychotic disturbance, mood disturbance, and anxiety; E78.5 Hyperlipidemia, unspecified; R11.0 Nausea; R61 Generalized hyperhidrosis; Z03.818 Encounter for observation for suspected exposure to other biological agents ruled out
CPT/HCPCS: 36415; 71045; 71275; 80053; 83690; 83735; 84484; 85025; 85379; 85610; 85730; 87637; 93005; 96372; 96374; 99222; 99285; J1308; J1644; Q9967

== ENCOUNTER 2024-12-02 01:30 | Outpatient (BNV) | payer MEDICARE, MEDICAID, SELFPAY | END 2024-12-02 05:40 | PROVIDERS: Admitting Provider Hospitalist; Emergency Provider Internal Medicine; PCP Internal Medicine; Visit Provider Radiology Diagnostic Radiology | DX: R91.1 Solitary pulmonary nodule (principal); K63.89 Other specified diseases of intestine | CPT/HCPCS: 71275 ==

== ENCOUNTER 2024-12-11 14:23 | Outpatient (AMB) | payer MEDICARE, MEDICAID, SELFPAY ==
--- OUTSIDE RECORDS SUMMARY | 2024-07-25 11:45 | XMS_ITS ---
Author Organization [facility] Address [address] [place] [address] Care Team Providers Care Distribution Operations Supervisor Name Role Phone Brianna Fajardo Primary Care Provider Arminda Pandya Unavailable [phone] Medications Medication SIG (Take, Route, Frequency, Duration) Notes Start Date End Date Status Vitamin E Not-Taking traZODone HCl 50 MG as directed Orally O nce a day Active [place] 3 Active Vitamin B 12 Not-Javier ing Vitamin C Not-Taking Centrum Silver Not-T aking Iron Not-Taking Melatonin Not-Taking Vitamin A Not-Taking Vitamin D3 Not-Takin g Zinc Not-Taking Ammonium Lactate 12 % 1 application to affected area Externally to feet Twice a day; Duration: 30 days Active Vitamin B12 Not-Taki ng Atorvastatin Calcium 40 MG 1 tablet Orally Once a day; Duration: 30 day(s) Active Memantine HCl 10 MG 1 tablet Orally Twic e a day; Duration: 30 day(s) Active amLODIPine Besylate 10 MG 1 tablet Orall y Once a day; Duration: 30 day(s) Active Lisinopril-hydroCHLOROthi azide 20-12.5 MG 1 tablet Orally Once a day; Duration: 30 day(s) Active Encounters Encounter Location Date Provider Diagnosis [facility] [address] [place] [address] 07/25/2024 Arminda Nguyen Plan Of Treatment Next Appt Details Provider Name:Arminda oseguera, 02/14/2025 03:15:00 PM, [address] [place], [phone], Progress Notes * DHARADiannada MDOB: 3 (84 yo F)Acc No.[id number]:07/25/2024 Progress Note Patient: Shonda ESPOSITO Provider: Sherman Nguyen DPM :1940 A ge:83 Y S ex:Female Date:07/25/2024 Address:[address] [place], [place] [phone] Pcp:Brianna Fajardo Subjective: * Chief Complaints: * * HPI: A t Risk footcare: Pt States Last PCP Visit: D ate 0 12/29/2023 * Medical History: * Medications: T aking traZODone HCl 50 MG Tablet as directed Orally Once a day , Taking [place] 3 , Taking amLODIPine Besylate 10 MG Tablet 1 tablet Orally Once a day , Taking Lisinopril-hydroCHLOROthiazide 20-12.5 MG Tablet 1 tablet Orally Once a day , Taking Atorvastatin Calcium 40 MG Tablet 1 tablet Orally Once a day , Taking Memantine HCl 10 MG Tablet 1 tablet Orally Twice a day , Taking Ammonium Lactate 12 % Cream 1 application to affected area Externally to feet Twice a day , Not-Taking/PRN Zinc , Not-Taking/PRN Vitamin B12 , Not-Taking/PRN Centrum Silver , Not-Taking/PRN Melatonin , Not-Taking/PRN Iron , Not-Taking/PRN Vitamin D3 , Not-Taking/PRN Vitamin A , Not-Taking/PRN Vitamin C , Not-Taking/PRN Vitamin B 12 , Not-Taking/PRN Vitamin E Objective: * Vitals: Assessment: Plan: * Treatment: * Images: * The named appointment provid er may or may not be the originator of this progress note, and it is not deemed complete until electronically signed by the appointment provider. Sign off status: Pending * Provider: Sherman Nguyen DPM Date: 0 07/25/2024 Generated for Nighat maynard/Harriett/Morris on: 0 12/11/2024 03:06 PM EDT History and Physical Notes * HPI (History of Present Illness) Category Sub-Category Detail Notes Category Not es At Risk footcare Pt States Last PCP Visit: Date:
--- NOTE | 2024-12-11 14:33 | A.OFFVIS_ITS ---
Vital Signs 12/11/24 14:36 Height 4 ft 11 in Weight 88 lb 2.958 oz BMI 17.8 BP 118/60 Blood Pressure Location Lt brachial Position Sitting Pulse 62 Pulse Source Pulse Oximeter Intake Visit Reasons: [id number] up-Chest Pain Allergies No Known Allergies Allergy (Verified 12/11/24 14:25) Medication List - Last Reconciled 12/11/24 by Charles Fairbanks MD amlodipine 10 mg PO DAILY atorvastatin 10 mg PO DAILY diclofenac sodium 1% 2 grams topical QID PRN lisinopril-hydrochlorothiazide 20-12.5 mg 2 tabs PO DAILY melatonin 20 mg PO BEDTIME memantine 10 mg PO BID omega-3 fatty acids 1,000 mg PO DAILY trazodone 50 mg PO BEDTIME HPI Comments Details: Shonda returns for follow-up. She has a history of aortic stenosis as well as left bundle-branch block. Has Alzheimer's dementia. Recently, she was admitted to the hospital for complaints of chest pain but no etiology identified. Troponins were unremarkable. According to daughters, she has consistently reported chest pain at a specific time in the evening and they believe that it is because of panic, dementia extra. She has absolutely no exertional type chest pains. Otherwise, getting along okay. Continues to have dementia symptoms. [facility] Medical History Dementia Other and unspecified hyperlipidemia Essential hypertension LBBB (left bundle branch block) Non-rheumatic aortic stenosis Hypertension Nonrheumatic aortic (valve) stenosis Left bundle branch block Dementia History of left bundle branch block Surgical History History of shoulder surgery History of bunionectomy History of rotator cuff surgery History of tubal ligation Family History Father No problems noted. Mother No problems noted. Social History Patient Tobacco Use Status: Never used Tobacco service: No Review of Systems Const Denies weakness ENT Denies dizziness Card Denies chest pain, Denies chest pain with activity, Denies syncope, Denies rapid heart rate, Denies pedal edema, Denies edema, Denies leg edema, Denies lightheadedness, Denies palpitations, Denies dyspnea, Denies dyspnea on exertion and Denies orthopnea Resp Denies cough, Denies dyspnea and Denies dyspnea on exertion GI Denies hematochezia and Denies change in stool character Musc Denies abnormal gait, Denies muscle cramps, Denies muscle weakness, Denies numbness, Denies radiating pain into limb and Denies tingling Neuro Denies abnormal gait, Denies dizziness, Denies syncope, Denies numbness, Denies tingling and Denies weakness Endo Denies palpitations Physical Exam Vital Signs: Last Vital Signs Pulse 62 12/11/24 14:36 BP 118/60 12/11/24 14:36 BMI result Body Mass Index 17.8 Const General: comfortable and no acute distress Orientation/consciousness: patient oriented x3 HEENT Other: Unremarkable Head: Yes normal to inspection Neck Neck: Yes normal visual inspection Chest Chest palpation & inspection: normal inspection of the chest Resp Auscultation: clear to auscultation bilaterally Cardio Palpation: normal PMI Heart sounds: S1 normal heart sound present, S2 normal heart sound present, no gallops, no murmurs and no rubs GI Palpation (GI): Soft to palpation Back/Spine/Pelvis Other: unremarkable Skin General skin exam: no rashes or lesions noted Neuro General: patient oriented x3 Extrem General: Yes normal to inspection Psych Mental Status: mental status grossly normal Assessment & Plan Assessment & Plan (1) Non-rheumatic aortic stenosis: Code(s): I35.0 - Nonrheumatic aortic (valve) stenosis Category: Medical Plan: In the echocardiogram from 2023, LVEF is 65-70%. [id number] aortic stenosis. May recheck before next visit. Even if this is progressive, doubt she will be a TAVR candidate because of dementia and frailty. (2) LBBB (left bundle branch block): Code(s): I44.7 - Left bundle-branch block, unspecified Category: Medical Plan: Chronic finding. Myocardial perfusion imaging study in the past was unremarkable. With regard to the new chest pains, seem very atypical for cardiac. Even so, she is a poor candidate for ischemic workup/revascularization. We discussed about exertional symptoms and to report to us if they happen. Daughters understand. They believe her chest pains are probably from dementia itself as she reports those pains at a very specific time daily. (3) Essential hypertension: Code(s): I10 - Essential (primary) hypertension Category: Medical Plan: Stable; remains on amlodipine, lisinopril/hydrochlorothiazide. (4) Dementia: Code(s): F03.90 - Unspecified dementia, unspecified severity, without behavioral disturbance, psychotic disturbance, mood disturbance, and anxiety Category: Medical Plan: Continues to have memory issues extra. Family state that she probably will not remember that she came here today. Because of these issues, most likely conservative care from cardiac. Plan Discussion Notes During the discussion, I explained that the episodes of chest pain are unlikely to be cardiac in origin due to the absence of symptoms during physical activity. I advised continuing current medications and emphasized the importance of monitoring her symptoms, particularly in relation to her dementia. We discussed the plan to conduct an echocardiogram in six months and the need for regular follow-up appointments to reassess her condition. Patient was informed and verbally consented to the use of an ambient scribe for clinic note documentation during this visit. Patient Instructions: - Monitor for any new or worsening symptoms, especially during physical activity. - Attend regular follow-up appointments and the scheduled echocardiogram in six months. Coding Level of Care Code Est Pt Level 4 (96094) Complex EM visit Add On G2211 Diagnoses Non-rheumatic aortic stenosis I35.0 LBBB (left bundle branch block) I44.7 Essential hypertension I10 Dementia F03.90
[2024-12-11 14:36] VITALS: BP 118/60; PULSE 62; BMI 17.8
--- OUTSIDE RECORDS SUMMARY | 2024-12-11 15:07 | XMS_ITS | Clinical Summary ---
Author Organization [facility] [address] [place] [address] [place] [phone] Phone Care Team Providers Care Central Scheduler Name Role Phone Brianna Fajardo MD Primary Care Provider [phone] Allergies Active Allergy Reactions Criticality Noted Date Comments Cat Dander Itching 03/15/2023 Medications lactose-reduced food (ENSURE ORAL) Take 3 Cans by mouth daily. CATERINA-99 3 cans per day 90 cans per month 11 refills 4 Active cholecalciferol (VITAMIN D-3) 25 mcg (1,000 unit) capsule Take by mouth daily. Active omega-3 acid ethyl esters (LOVAZA) 1 gram capsule Take by mouth daily. Active ferrous sulfate 325 mg (65 mg elemental iron) tablet Take 1 Tablet by mouth daily. Every other day Active zinc gluconate 100 mg tablet Take by mouth. Everry other day Active PEDIATRIC MULTIVITAMIN ORAL PEDIATRIC MULTIVITAMINS- FL (MULTI VIT/FL OR) Take by mouth. Active amLODIPine (NORVASC) 10 mg tabletIndications :Essential (primary) hypertension TAKE 1 TABLET BY MOUTH EVERY DAY 90 tablet 1 5 Active memantine (NAMENDA) 10 mg tablet TAKE 1 TABLET BY MOUTH TWICE A DAY 180 tablet 1 5 Active diclofenac (VOLTAREN) 1 % topical gel APPLY 2 G TOPICALLY 4 TIMES DAILY. SHOULDER PAIN 100 g 5 Active atorvastatin (LIPITOR) 10 mg tablet TAKE 1 TABLET BY MOUTH EVERY DAY 90 tablet 1 5 Active traZODone (DESYREL) 50 mg tablet TAKE 1 TABLET BY MOUTH EVERYDAY AT BEDTIME 90 tablet 1 5 Active lisinopril-hydroC HLOROthiazide (PRINZIDE,ZESTORE TIC) 20-12.5 mg per tabletIndications :Essential (primary) hypertension TAKE 2 TABLETS BY MOUTH EVERY DAY 180 tablet 1 5 Active Active Problems Problem Noted Date Diagnosed Date Dementia ([facility] V24, [facility] V28) 04/25/2024 Glaucoma 04/25/2024 Heart murmur 04/25/2024 Overview (04/25/2024): f/u cardiology in [place] HTN (hypertension) 04/25/2024 Hyperlipidemia 04/25/2024 Non-rheumatic aortic stenosis 04/25/2024 Overview (04/25/2024): [facility] Fair[place] in [place] Osteopenia 04/25/2024 Varicose veins of both lower extremities 021 Cataract 01/25/2019 Mitral valve regurgitation 01/25/2019 Overview (04/25/2024): Tricuspid regurgitation Trochanteric bursitis 07/16/2011 Tendinitis of shoulder 07/06/2011 Encounters Date Type Department Care Team Description 12/04/2024 Telephone Adult Medicine [address] [phone] Brianna Fajardo MD Hospital Follow-up 11/09/2024 Telephone Adult Medicine [address] [phone] Brianna Fajardo MD Referral 10/30/2024 Telephone Adult Medicine [address] [phone] Selam Cuadra [place] 10/13/2024 Telephone Adult Medicine [address] [phone] Brianna Fajardo MD Advice Only 10/04/2024 Telephone Adult Medicine [address] [phone] Brianna Fajardo MD Request For Order(s) 09/28/2024 Telephone Adult Medicine [address] [phone] Brianna Fajardo MD Diarrhea 09/22/2024 [place] [facility] [address] [phone] Brianna Fajardo MD Forms/questionnaires; [facility] Form 09/20/2024 Telephone Adult [address] [phone] Brianna Fajardo MD Forms/questionnaires from Last 3 Months Immunizations Name Administration Dates Next Due Influenza trivalent, 0.5mL ( Fluad) 65yo and older 03/14/2024,02/25/2022,02/24/2017 Pneumococcal polysaccharide 23 valent (Pneumovax 23) 2yo and older 03/18/2003 Td Tetanus diptheria (Tdvax) 7yo and older 08/14 Zoster Live 11/10/2012 Surgical History Surgery Date Site/Laterality Comments BUNIONECTOMY PROCEDURE: TX CORRJ HLX VLGS BNCTY SESMDC W/DOUBLE OSTEOTOMY TUBAL LIGATION PROCEDURE: HISTORICAL TUBAL LIGATION ROTATOR CUFF REPAIR PROCEDURE: HISTORICAL ROTATOR CUFF REPAIR; COMMENT: left Medical History Medical History Date Comments Osteopenia DX:Osteopenia Glaucoma DX:Glaucoma HTN (hypertension) DX:HTN (hyper tension) Hyperlipidemia DX:Hyperlipidemi a Dementia (CMS/HCC V24, CMS/HCC V28) DX:Dementia (HCC) Non-rheumatic aortic stenosis DX :Non-rheumatic aortic stenosis; COMMENT: [facility] Dr[facility] in [place] Cataract 01/25/2019 DX:Cataract Mitral valve regurgitation 01/25/2019 DX:Mi tral valve regurgitation; COMMENT: Tricuspid regurgitation Family History Medical History Relation Name Comments Coronary artery disease Father Relation Name Status Comments Father Social History Tobacco Use Types Packs/Day Years Used Date Smoking Tobacco: Never Smokeless Tobacco: Never Tobacco Cessation:Counseling Given: Not Answered Comments Unknown Sex and Gender Information Value Date Recorded Sex Assigned at Not on file Legal Sex Female 4:34 AM EST Gender Identity Not on file Sexual Orientation Not on file Obstetrics History Last Filed Vital Signs Vital Sign Reading Time Taken Comments Blood Pressure 110/60 08/23/2024 1:56 PM EDT Pulse 60 08/23/2024 1:56 PM EDT Temperature 36.6 C (97.9 F) 08/23/2024 1:56 PM EDT Respiratory Rate 12 08/23/2024 1:56 PM EDT Oxygen Saturation - - Inhaled Oxygen Concentration - - Weight 43.5 kg (96 lb) 08/23/2024 1:56 PM EDT Height 149.9 cm (4' 11 ) 08/23/2024 1:56 PM EDT Body Mass Index 19.39 08/23/2024 1:56 PM EDT Plan of Treatment Upcoming Encounters Date Type Department Care Team (Late st Contact Info) Description 12/20/2024 9:00 AM EDT Office Visit Adult Medicine [address] [phone] Brianna Fajardo MD [address] [place] [phone] Health Maintenance Due Date Last Done Comments Zoster Vaccines (2 of 3) 01/05/2013 11/10/2012 Social Influencers of Health Screening 04/19/2022 Influenza Vaccine (#1) 2025 , 02/25/2022, 02/24/2017 Pneumococcal Vaccine: 50+ Years (2 of 2 - PCV) 05/16/2025 03/18/2003 Postponed from 03/18/2004 (Patient Refused) RSV Immunization Adult Patients (1 - 1-dose 75+ series) 05/16/2025 Postponed from 2017 (Supply/Drug Shortage) Falls Risk Assessment 08/23/2025 08/23/2024 Hypertension/CHF/CAD Annual BMP Blood Test 08/23/2025 08/23/2024, 08/14/2022 Medicare Annual Wellness Visit 08/23/2025 08/23/2024 Cholesterol Screening (Lipid Panel) 08/23/2029 08/23/2024, 03/15/2023 Osteoporosis Screening (Bone Density Screening) 01/09/2031 01/09/2021 DTaP,Tdap,and Td Vaccines (2 - Td or Tdap) 08/14/2032 08/14/2022 COVID-19 Vaccine Discontinued 05/21/2021, 04/23/2021 Depression Screening Completed 08/23/2024, 08/04/2023 HIB Vaccines Aged Out No longer eligi [...] patient's age to complete this topic Meningococcal B Vaccine Aged Out No l onger eligible based on patient's age to complete this topic RSV Immunization Patients Under 20 months Aged Out No longer eligible b ased on patient's age to complete this topic Varicella Vaccines Aged Out No longer eligible based on patient's age to complete this topic Procedures Procedure Name Priority Date/Time Associated Diagnosis Comments EXTERNAL CT REPORT 12/02/[address] REPORT 12/02/2024 EXTERNAL XRAY REPORT 12/01/2024 INTERFERON GAMMA INTERPRETATION Routine 10/12/2024 3:24 PM EDT Screening-pulmonary TB INTERFERON GAMMA ANTIGEN 2 Routine 10/12/2024 3:24 PM EDT Screening-pulmonary TB INTERFERON GAMMA ANTIGEN 1 Routine 10/12/2024 3:24 PM EDT Screening-pulmonary TB INTERFERON GAMMA MITOGEN Routine 10/12/2024 3:24 PM EDT Screening-pulmonary TB INTERFERON GAMMA NIL Routine 10/12/2024 3:24 PM EDT Screening-pulmonary TB INTERFERON GAMMA FOR TB, QUALITATIVE Routine 10/12/2024 3:24 PM EDT Screening-pulmonary TB BASIC METABOLIC PANEL Routine 08/23/2024 2:58 PM EDT Primary hypertension LIPID PANEL WITH REFLEX TO DIRECT LDL Routine 08/23/2024 2:58 PM EDT Hyperlipidemia, unspecified hyperlipidemia type DEPRESSION SCREENING Routine 08/04/2023 DEXA SCAN Routine 01/09/2021 9:30 AM EDT from Last 3 Months or Most Recently Relevant to Health Maintenance Results * External CT Report (12/02/2024) Only the most recent of2 resultswithin the time period is included. Anatomical Region Laterality Modality Computed Tomogra phy us Provider [facility] PROCEDURES Final Result * External Xray Report (12/01/2024) Anatomical Region Laterality Modality Radiographic Tonie ging us Provider [facility] XR PROCEDURES Final Result * Interferon gamma interpretation (10/12/2024 3:24 PM EDT) [facility] Signature Quantiferon Plus Interpretation Negative Negative LAB CHEMISTRY METHOD 10/14/2024 9:30 AM EDT [facility] Blood Venous blood specimen / Unknown Venipuncture / Unknown 10/12/2024 3:24 PM EDT 10/12/2024 3:24 PM EDT Brianna Fajardo MD LAB BLOOD ORDERABLES Final Resul t [facility] [address] [place] [address], [place] [phone] * Interferon gamma antigen 2 (10/12/2024 3:24 PM EDT) Blood Venous blood specimen / Unknown Venipuncture / Unknown 10/12/2024 3:24 PM EDT 10/12/2024 3:24 PM EDT Brianna Fajardo MD LAB BLOOD ORDERABLES Final Resul t [facility] [address] [place] [address], [place] [phone] * Inteferon gamma antigen 1 (10/12/2024 3:24 PM EDT) Blood Venous blood specimen / Unknown Venipuncture / Unknown 10/12/2024 3:24 PM EDT 10/12/2024 3:24 PM EDT Brianna Fajardo MD LAB BLOOD ORDERABLES Final Resul t Performing Organization Address City/[facility]/ZIP Co de Phone Number [facility] [address] [place] [address], [place] [phone] * Interferon gamma mitogen (10/12/2024 3:24 PM EDT) Blood Venous blood specimen / Unknown Venipuncture / Unknown 10/12/2024 3:24 PM EDT 10/12/2024 3:24 PM EDT Brianna Fajardo MD LAB BLOOD ORDERABLES Final Resul t Performing Organization Address City/[facility] Co de Phone Number [facility] [address] [place] [address], [place] [phone] * Interferon gamma NIL (10/12/2024 3:24 PM EDT) Blood Venous blood specimen / Unknown Venipuncture / Unknown 10/12/2024 3:24 PM EDT 10/12/2024 3:24 PM EDT us Brianna Fajardo MD LAB BLOOD ORDERABLES Final Resul t Performing Organization Address [facility] de Phone Number [facility] [address] [place] [address], [place] [phone] * Lipid panel with reflex to direct LDL (08/23/2024 2:58 PM EDT) [facility] Cholesterol 168 0 - 200 mg/dL LAB CHEMISTRY METHOD 08/23/2024 6:25 PM EDT [facility] Triglycerides 103 0 - 150 mg/dL LAB CHEMISTRY METHOD 08/23/2024 6:25 PM EDT [facility] HDL 71 >=40 mg/dL LAB CHEMISTRY METHOD 08/23/2024 6:25 PM EDT [facility] LDL Calculated 76 0 - 100 mg/dL LAB CHEMISTRY METHOD 08/23/2024 6:25 PM EDT [facility] VLDL Cholesterol Yonathan 20.6 mg/dL LAB CHEMISTRY METHOD 08/23/2024 6:25 PM EDT [facility] Non HDL Chol. (LDL+VLDL) 97 <145 mg/dL LAB CHEMISTRY METHOD 08/23/2024 6:25 PM EDT [facility] Chol/HDL Ratio 2.4 0.0 - 4.4 LAB CHEMISTRY METHOD 08/23/2024 6:25 PM EDT [facility] Blood Venous blood specimen / Unknown Venipuncture / Unknown 08/23/2024 2:58 PM EDT 08/23/2024 2:58 PM EDT us [facility] LAB BLOOD ORDERABLES Final Res ult [facility] [address] [place] [address], * (ABNORMAL) Basic metabolic panel (08/23/2024 2:58 PM EDT) Sodium 140 133 - 145 mmol/L LAB CHEMISTRY METHOD 08/23/2024 6:25 PM EDT [facility] Potassium 3.5 3.5 - 5.5 mmol/L LAB CHEMISTRY METHOD 08/23/2024 6:25 PM EDT [facility] Chloride 101 96 - 110 mmol/L LAB CHEMISTRY METHOD 08/23/2024 6:25 PM EDT [facility] CO2 30 21 - 32 mmol/L LAB CHEMISTRY METHOD 08/23/2024 6:25 PM EDT [facility] Anion Gap 9 3 - 11 LAB CHEMISTRY METHOD 08/23/2024 6:25 PM EDT [facility] Glucose 104(H) 70 - 100 mg/dL LAB CHEMISTRY METHOD 08/23/2024 6:25 PM EDT [facility] BUN 12 5 - 25 mg/dL LAB CHEMISTRY METHOD 08/23/2024 6:25 PM EDT [facility] Creatinine 0.82 0.50 - 1.10 mg/dL LAB CHEMISTRY METHOD 08/23/2024 6:25 PM EDT [facility] eGFR 72 >=60 mL/min/1. 73m2 LAB CHEMISTRY METHOD 08/23/2024 6:25 PM EDT [facility] Comment:Calculation based on the Chronic Kidney Disease Epidemiology Collaboration (CKD-EPI) equation refit without adjustment for race. BUN/Creatinine Ratio 14.6 LAB CHEMISTRY METHOD 08/23/2024 6:25 PM EDT [facility] Calcium 10.2 8.5 - 10.5 mg/dL LAB CHEMISTRY METHOD 08/23/2024 6:25 PM EDT [facility] Blood Venous blood specimen / Unknown Venipuncture / Unknown 08/23/2024 2:58 PM EDT 08/23/2024 2:58 PM EDT [facility] LAB BLOOD ORDERABLES Final Res ult [facility] [address] [place] [address], * Depression Screening (08/04/2023) Depression Screening abstracted Historical Provider HEALTH MAINTENANCE Final Result * Bone Density Scan (Dexa Scan) (01/09/2021 9:30 AM EDT) Anatomical Region Laterality Modality Other Brianna Fajardo MD HEALTH MAINTENANCE Final Result from Last 3 Months or Most Recently Relevant to Health [place] [id number] [employer] Care Teams Central Scheduler Relationship Specialty Start Date End Date Brianna Fajardo MD [address] [place] [id number] PCP - General 06/17/22
== END 2024-12-11 16:27 | disposition home or self-care (01) ==
PROVIDERS: Visit Provider Internal Medicine
DX: I35.0 Nonrheumatic aortic (valve) stenosis (principal); I44.7 Left bundle-branch block, unspecified; I10 Essential (primary) hypertension; F03.90 Unspecified dementia, unspecified severity, without behavioral disturbance, psychotic disturbance, mood disturbance, and anxiety
CPT/HCPCS: 99214; G2211

== ENCOUNTER → 2024-12-11 14:23 | Outpatient (BNVA) | payer OTHER, SELFPAY | PROVIDERS: Visit Provider Internal Medicine | DX: I35.0 Nonrheumatic aortic (valve) stenosis (principal); I44.7 Left bundle-branch block, unspecified; I10 Essential (primary) hypertension; F03.90 Unspecified dementia, unspecified severity, without behavioral disturbance, psychotic disturbance, mood disturbance, and anxiety | CPT/HCPCS: 99212 ==